=== PATIENT | female | born 1995 | race Caucasian/White ===

== ENCOUNTER → 2017-02-03 | Outpatient (CLI) | payer OTHER ==
[~2017-02-03] MED LIST: ACET50TA GT; DOCU10CA PO; IBUP1TAB7 PO; LABE300T PO; PERC5TAB12 PO; PERCOCET PO; PRENTAB74 PO; PROC30TA PO; [UNRECOGNIZED DRUG - CODE] PO
== END ==
LOC: M ADAMS 09:23
PROVIDERS: ATTEND Physician Assistant Medical
DX: J02.9 Acute pharyngitis, unspecified (principal)

== ENCOUNTER → 2017-11-08 | Outpatient (CLI) | payer OTHER ==
[2017-11-08 17:36] LABS: BASO % 0.1 % (0.0-1.0); EOS # 0.1 10^3/uL (0.0-0.50); EOS % 0.5 % (0.0-3.0); HEMATOCRIT 40.1 % (36.0-47.0); HEMOGLOBIN 13.8 g/dl (12.0-15.5); IMMATURE GRANULOCYTE % 0.3 % (0-3.0); LYMPH # 2.1 10^3/uL (1.5-6.5); LYMPH % 18.2 % (24.0-44.0); MEAN CORPUSCULAR HEMOGLOBIN 28.5 pg (27.0-33.0); MEAN CORPUSCULAR HGB CONC 34.4 g/dl (32.0-36.5); MEAN CORPUSCULAR VOLUME 82.7 fl (80.0-96.0); MONO # 0.8 10^3/uL (0.0-0.8); MONO % 6.6 % (0.0-5.0); NEUTROPHILS # 8.6 10^3/uL (1.8-7.7); NEUTROPHILS % 74.3 % (36.0-66.0); PLATELET COUNT, AUTOMATED 263 10^3/uL (150-450); RED BLOOD COUNT 4.85 10^6/uL (4.00-5.40); RED CELL DISTRIBUTION WIDTH 12.9 % (11.5-14.5); WHITE BLOOD COUNT 11.6 10^3/uL (4.0-10.0)
[2017-11-08 20:44] LABS: CHLAMYDIA DNA AMPLIFICATION NEGATIVE (NEGATIVE); GC DNA AMPLIFICATION NEGATIVE (NEGATIVE)
[2017-11-11 11:28] LABS: RUBELLA IgG QUALITATIVE IMMUNE (IMMUNE)
[2017-11-11 11:31] LABS: HBsAg Prenatal NEGATIVE (NEGATIVE)
[2017-11-11 11:57] LABS: HEPATITIS C VIRUS ABY INDEX 0.1 INDEX (<0.8)
[2017-11-13 18:33] LABS: HIV 1&2 SCREEN CENTAUR NEGATIVE (NEGATIVE)
== END ==
LOC: M LAB 15:27
DX: Z34.81 Encounter for supervision of other normal pregnancy, first trimester (principal); Z3A.08 8 weeks gestation of pregnancy
CPT/HCPCS: 86762

== ENCOUNTER → 2017-12-16 | Outpatient (CLI) | payer OTHER | LOC: M LAB 15:15 | DX: Z34.81 Encounter for supervision of other normal pregnancy, first trimester (principal); Z3A.00 Weeks of gestation of pregnancy not specified | CPT/HCPCS: 36415 ==

== ENCOUNTER 2018-01-13 09:41 | Emergency (ER) | payer OTHER ==
[2018-01-13 10:33] LABS: BASO % 0.2 % (0.0-1.0); EOS # 0.1 10^3/uL (0.0-0.50); EOS % 1.2 % (0.0-3.0); HEMATOCRIT 41.1 % (36.0-47.0); IMMATURE GRANULOCYTE % 0.5 % (0-3.0); LYMPH # 1.8 10^3/uL (1.5-6.5); LYMPH % 18.3 % (24.0-44.0); MEAN CORPUSCULAR HGB CONC 34.1 g/dl (32.0-36.5); MEAN CORPUSCULAR VOLUME 85.3 fl (80.0-96.0); MONO # 0.6 10^3/uL (0.0-0.8); MONO % 5.8 % (0.0-5.0); NEUTROPHILS # 7.4 10^3/uL (1.8-7.7); PLATELET COUNT, AUTOMATED 234 10^3/uL (150-450); RED BLOOD COUNT 4.82 10^6/uL (4.00-5.40); RED CELL DISTRIBUTION WIDTH 12.7 % (11.5-14.5); WHITE BLOOD COUNT 9.9 10^3/uL (4.0-10.0)
[2018-01-13 10:39] LABS: AMORPHOUS SEDIMENT SMALL (NEGATIVE); APPEARANCE, URINE CLOUDY (CLEAR); BACTERIA, URINE AUTO 1+ (NEGATIVE); BILIRUBIN, URINE AUTO NEGATIVE (NEGATIVE); BLOOD, URINE BLOOD 3+ (NEGATIVE); COLOR, URINE AMBER (YELLOW); GLUCOSE, URINE (UA) AUTO NEGATIVE (NEGATIVE); KETONE, URINE AUTO NEGATIVE (NEGATIVE); LEUKOCYTE ESTERASE, URINE AUTO 1+ (NEGATIVE); MUCUS, URINE SMALL (NEGATIVE); NITRITE, URINE AUTO NEGATIVE (NEGATIVE); PROTEIN, URINE AUTO 1+ mg/dL (NEGATIVE); RBC, URINE AUTO 32 /HPF (0-3); SPECIFIC GRAVITY URINE AUTO 1.026 (1.002-1.035); SQUAMOUS EPITHELIAL CELL UR AU 25 /HPF (0-6); TRANSITIONAL EPITHELIAL AUTO 1 /HPF; UROBILINOGEN, URINE AUTO 0.2 mg/dL (0.0-2.0); WBC, URINE AUTO 22 /HPF (0-3)
[2018-01-13 11:02] LABS: ANION GAP 10 MEQ/L (8-16); BLOOD UREA NITROGEN 9 MG/DL (7-18); CALCIUM LEVEL 8.7 MG/DL (8.5-10.1); CARBON DIOXIDE LEVEL 24 MEQ/L (21-32); CHLORIDE LEVEL 104 MEQ/L (98-107); CREATININE FOR GFR 0.92 MG/DL (0.55-1.30); GLOMERULAR FILTRATION RATE > 60.0 (>60); GLUCOSE, FASTING 100 MG/DL (70-100); POTASSIUM SERUM 3.7 MEQ/L (3.5-5.1); SODIUM LEVEL 138 MEQ/L (136-145)
== END 2018-01-13 11:22 | disposition home or self-care (01) ==
LOC: M ED 09:41
DX: O23.42 Unspecified infection of urinary tract in pregnancy, second trimester (principal); Z3A.17 17 weeks gestation of pregnancy; O20.8 Other hemorrhage in early pregnancy; Z79.899 Other long term (current) drug therapy; Z88.0 Allergy status to penicillin
CPT/HCPCS: 76811

== ENCOUNTER → 2018-01-30 | Outpatient (CLI) | payer OTHER | LOC: M RAD 12:02 | DX: O32.1XX0 Maternal care for breech presentation, not applicable or unspecified (principal); Z36.89 Encounter for other specified antenatal screening; Z3A.20 20 weeks gestation of pregnancy | CPT/HCPCS: 76816 ==

== ENCOUNTER → 2018-02-13 | Outpatient (REF) | payer OTHER | LOC: M LAB REF 16:56 | DX: Z36.89 Encounter for other specified antenatal screening (principal) | CPT/HCPCS: 87086 ==

== ENCOUNTER → 2018-03-27 | Outpatient (CLI) | payer OTHER ==
[~2018-03-27] MED LIST changes: +MACR100C43 PO
[2018-03-27 17:26] LABS: HEMATOCRIT 35.1 % (36.0-47.0); HEMOGLOBIN 11.6 g/dl (12.0-15.5); MEAN CORPUSCULAR HEMOGLOBIN 28.1 pg (27.0-33.0); PLATELET COUNT, AUTOMATED 203 10^3/uL (150-450); RED BLOOD COUNT 4.13 10^6/uL (4.00-5.40); WHITE BLOOD COUNT 10.3 10^3/uL (4.0-10.0)
== END ==
LOC: M LAB 15:26
PROVIDERS: ATTEND Obstetrics & Gynecology
DX: Z34.82 Encounter for supervision of other normal pregnancy, second trimester (principal); Z3A.00 Weeks of gestation of pregnancy not specified

== ENCOUNTER 2018-04-21 18:08 | Emergency (ER) | payer OTHER ==
[~2018-04-21] VITALS: Ht 165.1 cm; Wt 100.0 kg
--- NOTE | 2018-04-21 19:37 | REPVR ---
EXAM: US Duplex Right Lower Extremity Veins, Limited EXAM DATE/TIME: 04/21/2018 6:58 PM CLINICAL HISTORY: 22 years old, female; Pain; Leg, lower; Right; Additional info: Swelling TECHNIQUE: Real-time Duplex ultrasound of the Right Lower Extremity with 2-D benz scale, color Doppler flow and spectral waveform analysis. Limited exam was focused on the right lower extremity veins. COMPARISON: No relevant prior studies available. FINDINGS: Right deep veins: Unremarkable. The common femoral, femoral, proximal profunda femoral and popliteal veins are patent without thrombus. Normal Doppler waveforms. Normal compressibility and/or augmentation response. Right superficial veins: Unremarkable. Saphenofemoral junction is patent without thrombus. Soft tissues: Unremarkable. IMPRESSION: No acute findings. No evidence of deep vein thrombosis. Electronically signed by: Gabriel Ribera On 04/21/2018 19:37:09 PM
[2018-04-21 20:35] VITALS: BP 127/79
== END 2018-04-21 20:37 | disposition home or self-care (01) ==
LOC: M ED 18:08
DX: O26.893 Other specified pregnancy related conditions, third trimester (principal); R25.2 Cramp and spasm; Z3A.37 37 weeks gestation of pregnancy; Z88.0 Allergy status to penicillin; Z88.1 Allergy status to other antibiotic agents

== ENCOUNTER 2018-05-02 15:43 | Outpatient (CLI) | payer OTHER ==
[~2018-05-02] VITALS: Ht 167.6 cm; Wt 97.1 kg
[2018-05-02 15:56] VITALS: BP 137/85
[2018-05-02 16:02] VITALS: BP 126/76
[2018-05-02 16:23] LABS: HEMATOCRIT 33.8 % (36.0-47.0); HEMOGLOBIN 11.1 g/dl (12.0-15.5); MEAN CORPUSCULAR HEMOGLOBIN 27.6 pg (27.0-33.0); MEAN CORPUSCULAR HGB CONC 32.8 g/dl (32.0-36.5); MEAN CORPUSCULAR VOLUME 84.1 fl (80.0-96.0); PLATELET COUNT, AUTOMATED 217 10^3/uL (150-450); RED BLOOD COUNT 4.02 10^6/uL (4.00-5.40); WHITE BLOOD COUNT 9.1 10^3/uL (4.0-10.0)
[2018-05-02 16:47] LABS: TOTAL PROTEIN,RANDOM URINE 12.9 MG/DL (0.0-12.0)
[2018-05-02 16:58] LABS: ALT/SGPT 16 U/L (12-78); BILIRUBIN,TOTAL 0.2 MG/DL (0.2-1.0); CREATININE FOR GFR 0.77 MG/DL (0.55-1.30); GLOMERULAR FILTRATION RATE > 60.0 (>60); LDH LACTATE DEHYDROGENASE 142 U/L (84-246); URIC ACID 4.2 MG/DL (2.6-6.0)
[2018-05-02 18:02] VITALS: BP 127/79
[2018-05-02 18:12] VITALS: BP 113/63
[2018-05-02 18:22] VITALS: BP 127/75
--- NOTE | 2018-05-02 18:33 | IPNPDOC ---
Text Note Date of Service The patient was seen on 05/02/18. NOTE Outpatient 22yo PRAKASH 06/14/18. Presents @ 33w5d with complaints of elevated blood pressures in severe range. History is significant for GHTN previous 2 pregnancies. Pt had been instructed to monitor her blood pressure periodically. NAD, no complaints Normotensive NST reactive, Cat I No UC Preeclamptic panel WNL. Urine ratio 0.09. BPP 8/8, EFW 2192gm, 37% NADIA 19.1 Discharged home. Pt instructed to rest x 10 minutes prior to checking blood pressure Warnings reviewed. Keep next appt VS,Fishbone, I+O VS, Fishbone, I+O Laboratory Tests 05/02/18 16:13 Red Blood Count 4.02, Mean Corpuscular Volume 84.1, Mean Corpuscular Hemoglobin 27.6, Mean Corpuscular Hemoglobin Concent 32.8, Red Cell Distribution Width 12.2, Aspartate Amino Transf (AST/SGOT) 12, Alanine Aminotransferase (ALT/SGPT) 16, Lactate Dehydrogenase 142, Total Bilirubin 0.2, Uric Acid 4.2 Vital Signs Date Time Temp Pulse Resp B/P (MAP) Pulse Ox O2 Delivery O2 Flow Rate FiO2 05/02/18 18:22 91 127/75 (92) 05/02/18 15:56 98.1 18 Mayra Purdy CNM May 02, 2018 18:33
--- NOTE | 2018-05-06 08:37 | REP ---
Clinical: well-being Comparison: 02/20/2018 . Findings: Examination demonstrates a single live intrauterine in breech presentation. motion is identified by technologist. Placenta is noted posterior fundal and grade grade II without evidence for placenta previa or abruption. Amniotic fluid volume is normal. Cervix measures 4.5 cm in length and appears closed. Nuchal cord cannot be excluded. Gestational age by LMP 33 weeks 6 days with PRAKASH 06/14/2018 . Gestational age by current measurements 33 weeks 6 days with PRAKASH 06/14/2018 . FHR equals 153 beats per minute. BPD 8.6 cm 34 weeks 5 days HC 30.9 cm 34 weeks 3 days AC 29.2 cm 33 weeks 1 day FL 6.4 cm 33 weeks 0 days HL 5.8 cm 33 weeks 4 days HC/AC ratio 1.06 Estimated weight 2192 grams ( 37th percentile). Biophysical profile score: 8/8 Amniotic fluid index: 19.1 cm (8.1 - 24.8) Umbilical cord SD ratio: 3.48 (2.00 - 3.00). Impression: 1. Single live intrauterine in breech presentation demonstrating appropriate interval growth. 2. Biophysical profile score and amniotic fluid volume are normal. 3. Umbilical cord SD ratio mildly elevated. 4. Nuchal cord cannot be excluded. Electronically Signed by Gerson Pisano MD 05/06/2018 08:28 A
== END 2018-05-02 18:35 | disposition home or self-care (01) ==
LOC: M LDO 15:43
PROVIDERS: ATTEND Advanced Practice Midwife
DX: O13.3 Gestational [pregnancy-induced] hypertension without significant proteinuria, third trimester (principal); O32.1XX0 Maternal care for breech presentation, not applicable or unspecified; Z3A.33 33 weeks gestation of pregnancy

== ENCOUNTER → 2018-05-13 | Outpatient (REF) | payer OTHER | LOC: M LAB REF 19:06 | PROVIDERS: ATTEND Specialist | DX: Z34.83 Encounter for supervision of other normal pregnancy, third trimester (principal); Z36.85 Encounter for antenatal screening for Streptococcus B ==

== ENCOUNTER 2018-05-27 05:24 | Inpatient (IN) | payer OTHER ==
[~2018-05-27] VITALS: Ht 162.6 cm; Wt 97.9 kg
[2018-05-27] VITALS (7 sets, daily range): BP systolic 116–148; BP diastolic 60–94
[2018-05-27] MEDS ORDERED: LR 1,000 ML IV SCH ×2 (05:39→09:31)
[2018-05-27] MEDS ORDERED: LACTATED RINGER'S 1000 ML IV STA (05:39)
[2018-05-27] MEDS ORDERED: BICITRA 30ML SOLN UDC PO ONE (06:00)
[2018-05-27] MEDS ORDERED: LR 500 ML IV ONE (06:00)
[2018-05-27] MEDS ORDERED: AZTREONAM 2 GM in D5W MINI-BAG PLUS 50 ML IV ONE (06:00)
[2018-05-27] MEDS ORDERED: CLINDAMYCIN 900 MG in APPROPRIATE DILUENT 1 EA IV ONE (06:00)
[2018-05-27 06:23] LABS: HEMATOCRIT 34.8 % (36.0-47.0); HEMOGLOBIN 11.3 g/dl (12.0-15.5); MEAN CORPUSCULAR HEMOGLOBIN 26.3 pg (27.0-33.0); MEAN CORPUSCULAR HGB CONC 32.5 g/dl (32.0-36.5); MEAN CORPUSCULAR VOLUME 80.9 fl (80.0-96.0); PLATELET COUNT, AUTOMATED 213 10^3/uL (150-450); WHITE BLOOD COUNT 8.8 10^3/uL (4.0-10.0)
[2018-05-27] MEDS ORDERED: MORPHINE PRES-FREE INJ 10 MG/10 ML VIAL (J2274) As Ordered ONE (07:20)
[2018-05-27] MEDS ORDERED: OXYTOCIN INJ 10 UNITS/ML VIAL (J2590) As Ordered ONE (07:20)
[2018-05-27] MEDS ORDERED: NALOXONE INJ 0.4 MG/1 ML VIAL (J2310) IV PRN ×2 (08:14)
[2018-05-27] MEDS ORDERED: NALBUPHINE HCL 10 MG/ML AMP (J2300) IV PRN (08:14)
[2018-05-27] MEDS ORDERED: METOCLOPRAMIDE INJ 10MG/2ML VIAL (J2765) IV PRN (08:14)
[2018-05-27] MEDS ORDERED: ONDANSETRON 4MG/2ML VIAL (J2405) IV PRN ×3 (08:14→10:15)
[2018-05-27] MEDS ORDERED: diphenhydrAMINE INJ 50MG/ML VIAL (J1200) IV PRN (08:14)
[2018-05-27] MEDS ORDERED: ePHEDrine SULFATE 25 MG/5 ML(5MG/ML) SYRINGE As Ordered ONE (08:20)
[2018-05-27] MEDS ORDERED: PHENYLephrine HCL 500 MCG/5 ML (100MCG/ML) SYRINGE (J2370) As Ordered ONE (08:21)
[2018-05-27] MEDS ORDERED: KETOROLAC 60 MG/2 ML VIAL (J1885) As Ordered ONE (08:47)
[2018-05-27] MEDS ORDERED: ONDANSETRON 4MG/2ML VIAL (J2405) As Ordered ONE (08:56)
[2018-05-27] MEDS ORDERED: OXYTOCIN DRIP 30 UNITS in APPROPRIATE DILUENT 1 EA IV SCH (09:31)
[2018-05-27] MEDS ORDERED: PERCOCET PO (09:41)
[2018-05-27] MEDS ORDERED: IBUP1TAB7 PO (09:42)
[2018-05-27] MEDS ORDERED: RHOGAM 300 MCG (1500 IU) INJ (J2790) IM SCH (09:45)
[2018-05-27] MEDS ORDERED: PERCOCET 5MG/325MG TAB PO PRN (09:45)
[2018-05-27] MEDS ORDERED: MEASLES,MUMPS,RUBELLA VACCINE INJ (MMR-II) (90707) SC SCH (09:45)
[2018-05-27] MEDS ORDERED: MOM 30ML SUSPENSION UDC PO PRN (09:45)
[2018-05-27] MEDS ORDERED: NORCO, ANEXSIA 5/325MG TABLET (HYDROcodone/ACETAMINOPHEN) PO PRN (10:15)
[2018-05-27] MEDS ORDERED: fentaNYL 100 MCG/2 ML INJECTION (J3010) IV PRN (10:15)
[2018-05-27] MEDS ORDERED: ACETAMINOPHEN TAB 650MG DOSE (2X325MG) PO PRN (10:15)
[2018-05-27] MEDS ORDERED: OXYTOCIN 30 UNITS IN 0.9% NaCl 500ML IV BAG (J2590) As Ordered ONE (10:36)
[2018-05-27] MEDS: KETOROLAC 30 MG/ML VIAL (J1885) IV SCH ×2 (16:00→21:36)
[2018-05-28 02:15] VITALS: BP 114/61
[2018-05-28] MEDS: KETOROLAC 30 MG/ML VIAL (J1885) IV SCH (03:19)
[2018-05-28 06:45] VITALS: BP 139/63
[2018-05-28 07:30] LABS: HEMATOCRIT 31.7 % (36.0-47.0); HEMOGLOBIN 10.2 g/dl (12.0-15.5); MEAN CORPUSCULAR HGB CONC 32.2 g/dl (32.0-36.5); MEAN CORPUSCULAR VOLUME 83.9 fl (80.0-96.0); PLATELET COUNT, AUTOMATED 186 10^3/uL (150-450); RED BLOOD COUNT 3.78 10^6/uL (4.00-5.40); WHITE BLOOD COUNT 10.4 10^3/uL (4.0-10.0)
[2018-05-28 08:00] VITALS: BP 149/81
--- NOTE | 2018-05-28 08:06 | RO ---
DATE OF PROCEDURE: 05/27/2018 PREOPERATIVE DIAGNOSES: 1. Gestational hypertension. 2. Intrauterine at 37 weeks and 1 day. 3. History of two prior sections. POSTOPERATIVE DIAGNOSES: 1. Gestational hypertension. 2. Intrauterine at 37 weeks and 1 day. 3. History of two prior sections. SURGERY PERFORMED: Repeat section. SURGEON: Svetlana Emmanuel MD FRUIT PACKER: Vanna Hamm CNM ANESTHESIA: Spinal. ESTIMATED BLOOD LOSS: 500 mL. INTRAVENOUS FLUIDS: 1500 mL lactated Ringer's solution. URINE OUTPUT: 125 mL. PREOPERATIVE ANTIBIOTICS: 2 grams of Azactam and 900 mg of clindamycin. SPECIMENS: Cord blood. OPERATIVE FINDINGS: Female in the breech presentation. Apgars 9 and 9. Weight 6 pounds 2 ounces or 2780 grams DESCRIPTION OF OPERATION: After informed consent was obtained and written consent was reviewed, the patient was brought to the operating room where spinal anesthesia was placed. She was then placed in the supine position with a left lateral tilt. A Clancy catheter was placed and set to gravity. She was then prepped and draped in a normal sterile fashion. A time out in the operating room was then performed identifying the patient, the procedure to be performed as well as drug allergies. Anesthesia was tested and deemed to be adequate. A Pfannenstiel skin incision was then made along the previous skin incision and this was carried down to the underlying rectus fascia. The fascia was scored and this incision was extended bilaterally. The fascia was then dissected off the underlying rectus muscles both superiorly and inferiorly. The rectus muscles were then in the midline. The peritoneum was then entered sharply. The vesicouterine peritoneum was identified was identified, was tented and excised to create a bladder flap. The bladder blade was then placed to retract back the bladder. A curvilinear incision was then made in the lower uterine segment. Amniotomy was then performed productive clear fluid. The breech was brought to the level of the incision. The lower extremities were then delivered. The infant was then delivered down to the level of the scapula. The upper extremities were delivered followed by delivery of the head. The cord was clamped times two. The infant was taken over to the warmer with a good cry. Cord blood was then obtained. Placenta was drained and delivered grossly intact. The uterus was then exteriorized and cleared of all clots and debris. The uterine incision was then closed in two layers using #0 Vicryl, first in a running locking fashion, followed by a second layer for imbrication in a running nonlocking fashion. A [id number] stitch was placed along the uterine incision for hemostasis. The abdomen was then suctioned. The uterine incision was reinspected and noted to be hemostatic. The uterus was returned to the patient's abdomen, once again reinspected and noted to be hemostatic. The anterior peritoneum was then reapproximated with #3-0 Vicryl. The fascia was then closed using #0 Vicryl in a running nonlocking fashion. The subcutaneous tissue was then irrigated and suctioned. The subcutaneous tissue was then reapproximated with #3-0 Vicryl. Several subdermal stitches were placed with #3-0 Vicryl and skin was closed with #4-0 Monocryl in a subcuticular fashion. The incision was then cleaned, dried and was dressed. The patient was taken to recovery in stable condition. Counts were correct. Vanna Hamm, my medical library assistant, played an essential role during surgery. She assisted with tissue identification, retraction, delivery of the , as well as wound closure. ANNIA
[2018-05-28] MEDS: PRENATAL VITAMINS CHEWABLE TABLET PO SCH (08:14)
--- NOTE | 2018-05-28 08:41 | NUR ---
POD#1 Pain well controlled, voiding spontaneously, tolerating PO, ambulating without difficulty, lochia decreasing/minimal. VSS, normotensive, afebrile H: RRR L: CTA b/l Abd: soft,nt,nd, fundus firm Ext: no c/c/e Incision dry with bandage; no surrounding erythema or induration. preop h/h: 11.3/34.8 Postop h/h: 10.2/31.7 A/P: POD#1. Recovering well. Hemodynamically stable, afebrile, with good pain control. -Routine care -D/c home tomorrow -Routine fever/infectious, pain, bleeding precautions reviewed -F/u in 1-2 weeks and 6-8 weeks or sooner PRN. Yann Marin DO
[2018-05-28] MEDS: IBUPROFEN 800 MG TAB PO SCH ×2 (11:22→18:10)
[2018-05-28] MEDS: PERCOCET 5MG/325MG TAB PO PRN ×2 (13:16→20:36)
[2018-05-28 14:00] VITALS: BP 138/71
[2018-05-28 18:00] VITALS: BP 136/74
[2018-05-28 22:00] VITALS: BP 128/78
[2018-05-29 02:00] VITALS: BP 132/78
[2018-05-29] MEDS: IBUPROFEN 800 MG TAB PO SCH (02:59)
[2018-05-29 06:00] VITALS: BP 128/71
--- NOTE | 2018-05-29 07:42 | DSES ---
DATE OF ADMISSION: 05/27/2018 DATE OF DISCHARGE: 05/29/2018 Barby is a 22-year-old admitted for repeat section on 05/27/2018. DISCHARGE DIAGNOSIS: 1. Repeat section at term. 2. Gestational hypertension, stable. SURGEON: Dr. Svetlana Emmanuel METALIZER: Vanna Hamm, certified nurse musician instrumental. HISTORY: Barby is a 22-year-old 3, para 2-1-0-3 now, who underwent repeat section due to gestational hypertension during her . Her surgery was uncomplicated. She delivered a live female , 2780 grams, 6 pounds 2 ounces, 9 and 9. Her estimated blood loss for surgery was 500 mL. She has been out of bed for self care, rosendo care and infant care. She is voiding without difficulty and passing flatus. Her pain has been well controlled with by mouth pain medication. She is tolerating a regular diet and by mouth fluids. She has no complaints today. Preoperative CBC with hemoglobin of 11.3, hematocrit 34.8 and platelets 213. Postoperative CBC on 05/28/2018 with hemoglobin 10.2, hematocrit 31.7 and platelets 186. OBJECTIVE: Vital signs are stable today. Her temperature is 98.5, pulse 97, respirations 18, BP 128/71. She is alert and oriented times three. Her breasts are soft, nontender. Nipples are intact. Her abdomen with fundus firm at umbilicus. Dressing is intact and dry. There is no drainage noted around the dressing. She is to remove the dressing on postoperative day #5. Perineum is intact. Lochia rubra scant. PLAN: Discharge the patient home today. She is to follow up at [facility] in 1 week for a blood pressure check, 2 weeks for incision check and 8 weeks for visit. Pain meds have been E-prescribed by Dr. Svetlana Emmanuel to her pharmacy for Percocet 5/325 1-2 tablets by mouth every 4 hours as needed pain, ibuprofen 800 mg as needed for pain every 8 hours. I did review discharge instructions that include breast care, incision care, rosendo care, pelvic rest, activity and lifting restrictions, other danger signs, as well as access to care. edited: 05/30/2018 0717 tkf ANNIA
[2018-05-29] MEDS ORDERED: PRENTAB9 PO (08:00)
[2018-05-29] MEDS ORDERED: IBUP-1114 PO (08:00)
[2018-05-29] MEDS: PRENATAL VITAMINS CHEWABLE TABLET PO SCH (08:26)
== END 2018-05-29 10:20 | disposition home or self-care (01) | DRG 540 ==
LOC: M LDI 05:24 → M OBS 11:11
PROVIDERS: ADMIT Obstetrics & Gynecology; ATTEND Obstetrics & Gynecology
PROC: 10D00Z1 Extraction of Products of Conception, Low, Open Approach (ICD-10-PCS; principal; 2018-05-27 07:30)
DX: O34.211 Maternal care for low transverse scar from previous cesarean delivery (principal); O13.3 Gestational [pregnancy-induced] hypertension without significant proteinuria, third trimester; Z3A.37 37 weeks gestation of pregnancy; O32.1XX0 Maternal care for breech presentation, not applicable or unspecified; Z37.0 Single live birth

== ENCOUNTER → 2019-03-09 | Outpatient (CLI) | payer OTHER ==
[~2019-03-09] MED LIST changes: -ACET50TA GT; +IBUP-1114 PO; +MAPA500T17 GT; +OXYC1TAB23 PO; +PRENTAB9 PO
[2019-03-09 16:57] LABS: BASO % 0.2 % (0.0-1.0); EOS # 0.2 10^3/uL (0.0-0.5); EOS % 2.1 % (0.0-3.0); HEMATOCRIT 37.5 % (36.0-47.0); HEMOGLOBIN 11.9 g/dl (12.0-15.5); LYMPH # 1.9 10^3/uL (1.5-5.0); LYMPH % 21.9 % (24.0-44.0); MEAN CORPUSCULAR HEMOGLOBIN 26.3 pg (27.0-33.0); MEAN CORPUSCULAR HGB CONC 31.7 g/dl (32.0-36.5); MEAN CORPUSCULAR VOLUME 82.8 fl (80.0-96.0); MONO # 0.7 10^3/uL (0.0-0.8); MONO % 7.6 % (0.0-5.0); NEUTROPHILS % 68.1 % (36.0-66.0); PLATELET COUNT, AUTOMATED 196 10^3/uL (150-450); RED BLOOD COUNT 4.53 10^6/uL (4.00-5.40); WHITE BLOOD COUNT 8.9 10^3/uL (4.0-10.0)
[2019-03-09 18:38] LABS: CHLAMYDIA DNA AMPLIFICATION NEGATIVE (NEGATIVE); GC DNA AMPLIFICATION NEGATIVE (NEGATIVE)
[2019-03-10 08:13] LABS: RUBELLA IgG QUALITATIVE IMMUNE (IMMUNE)
[2019-03-11 13:17] LABS: HEPATITIS B SURFACE ANTIGEN NEGATIVE (NEGATIVE); HEPATITIS C VIRUS ABY INDEX < 0.0 INDEX (<0.8); HIV 1&2 SCREEN CENTAUR NEGATIVE (NEGATIVE)
== END ==
LOC: M LAB 15:35
PROVIDERS: ATTEND Specialist
DX: Z34.92 Encounter for supervision of normal pregnancy, unspecified, second trimester (principal); Z36.89 Encounter for other specified antenatal screening

== ENCOUNTER → 2019-03-19 | Outpatient (CLI) | payer OTHER | LOC: M LAB 14:30 | PROVIDERS: ATTEND Specialist | DX: Z34.82 Encounter for supervision of other normal pregnancy, second trimester (principal); Z36.89 Encounter for other specified antenatal screening ==

== ENCOUNTER → 2019-03-20 | Outpatient (CLI) | payer OTHER ==
--- NOTE | 2019-03-21 11:57 | REP ---
Obstetric sonography: History: Supervision of for anatomy. Findings: Scanning through the gravid uterus demonstrates a viable single intrauterine gestation in a variable lie. motion is observed and heart rate is recorded at 152 beats per minute. A posterior placenta is seen grade 1 without evidence of previa. Amniotic fluid is subjectively normal. Closed cervical length is 4.6 cm. No abnormality is observed. lungs, four-chamber heart and outflow tract views are less than optimally visualized due to position. The following additional anatomic structures are identified and felt to be unremarkable: cranium, choroid plexus, cavum, cerebellum and posterior fossa, face and profile, diaphragm, left-sided stomach, abdominal wall cord insertion, three-vessel umbilical cord, kidneys and bladder, spine, upper and lower extremities. Biometry chart: BPD 3.9 cm = 17 weeks 5 days Head circumference 14.6 cm = 17 weeks 5 days Abdominal circumference 12.7 cm = 18 weeks 2 days Femur length 2.6 cm = 18 weeks 0 days Humeral length 2.7 cm = 18 weeks 3 days HC/AC ratio normal 1.15. Cephalic index normal 0.73. Estimated weight 222 grams, 0 pounds 7 ounces, 53rd percentile for 17 weeks 6 days. Impression: Viable single intrauterine gestation at the 18 weeks 0 days by today's composite sonographic criteria. Expected gestational age estimate based on today's sonography August 21, 2019. heart, outflow tracts, and lungs are less than optimally visualized today due to position. Electronically Signed by Toby Rodriguez MD 03/21/2019 12:35 P
== END ==
LOC: M RAD 14:32
PROVIDERS: ATTEND Specialist
DX: Z34.92 Encounter for supervision of normal pregnancy, unspecified, second trimester (principal); Z36.89 Encounter for other specified antenatal screening; Z3A.18 18 weeks gestation of pregnancy

== ENCOUNTER → 2019-04-16 | Outpatient (CLI) | payer OTHER ==
[2019-04-16 16:30] LABS: TOTAL PROTEIN,RANDOM URINE 12.2 MG/DL (0.0-12.0)
[2019-04-16 16:31] LABS: ALT/SGPT 13 U/L (12-78); BILIRUBIN,TOTAL 0.3 MG/DL (0.2-1.0); CREATININE FOR GFR 0.74 MG/DL (0.55-1.30); GLOMERULAR FILTRATION RATE > 60.0 (>60); LDH LACTATE DEHYDROGENASE 147 U/L (84-246); URIC ACID 4.1 MG/DL (2.6-6.0)
== END ==
LOC: M LAB 15:00
PROVIDERS: ATTEND Advanced Practice Midwife
DX: O99.212 Obesity complicating pregnancy, second trimester (principal); E66.9 Obesity, unspecified; Z3A.00 Weeks of gestation of pregnancy not specified

== ENCOUNTER → 2019-04-29 | Outpatient (CLI) | payer OTHER ==
--- NOTE | 2019-04-29 18:24 | REP ---
OB ULTRASOUND: Real-time sonographic evaluation of the gravid uterus performed. There is a single living intrauterine gestation. The estimated gestational age is 23 weeks 5 days, EDC 08/21/2019. Today's measurements indicate appropriate growth. BPD 56 mm = 23 weeks 1 days, 35th percentile HC 203 mm = 22 weeks 3 days, 12th percentile AC 176 mm = 22 weeks 4 days, 25th percentile FL 42 mm = 23 weeks 5 days, 50th percentile HC/AC ratio 1.15, within normal range. Estimated weight 553 grams, 24th percentile. Cervix is closed and measures 3.8 cm in length. heart rate 147 beats per minute. SEEN/GROSSLY UNREMARKABLE Lateral ventricles yes Posterior fossa yes Upper lip yes Four-chamber heart Echogenic focus left ventricle likely related to chordae tendinea LVOT yes RVOT yes Stomach yes Cord insertion yes Three vessel cord yes Kidneys yes Bladder yes Spine no position: Vertex. Placenta: Posterior and grade 1 with no previa or abruption. Amniotic fluid: Within normal limits. Electronically Signed by Isaiah Hernandez MD 04/30/2019 10:26 A
== END ==
LOC: M RAD 15:13
PROVIDERS: ATTEND Advanced Practice Midwife
DX: Z36.9 Encounter for antenatal screening, unspecified (principal); Z3A.23 23 weeks gestation of pregnancy

== ENCOUNTER → 2019-05-28 | Outpatient (CLI) | payer OTHER ==
--- NOTE | 2019-05-28 15:27 | REP ---
OBSTETRIC SONOGRAPHY: HISTORY: Supervision of . Previous . Followup anatomy. Comparison study April 29, 2019. FINDINGS: Scanning through the gravid uterus demonstrates a living single intrauterine gestation in a cephalic lie. motion is observed and heart rate is recorded at 140 beats per minute. A posterior grade 1 placenta is seen without evidence of previa or abruption. Amniotic fluid is subjectively normal. Closed cervical length is 3.6 cm. There has been appropriate interval growth. Exam quality is inhibited to some degree by advanced gestational age and position. The following anatomic structures are identified today and felt to be unremarkable: cranium, face and profile, four-chamber heart with left and right ventricular outflow tract views, left-sided stomach, abdominal wall cord insertion, three-vessel cord, kidneys and bladder, spine. An echogenic focus is again seen in the left ventricle likely chordae tendineae. Biometry chart: BPD 6.7 cm = 26 weeks 6 days Head circumference 25.3 cm = 27 weeks 3 days Abdominal circumference 21.9 cm = 26 weeks 3 days Femur length 5.1 cm = 27 weeks 1 day Humeral length 4.7 cm = 27 weeks 4 days HC/AC ratio normal 1.15. Cephalic index normal 0.72. Estimated weight 984 grams, 2 pounds 2 ounces, 17th percentile for 27 weeks 6 days. IMPRESSION: Viable single intrauterine gestation at the 26 weeks 5 days by today's composite sonographic criteria. Expected gestational age estimate based on prior sonography is 27 weeks 5 days. PRAKASH by prior sonography August 22, 2019.
== END ==
LOC: M WHC 13:03
PROVIDERS: ATTEND Advanced Practice Midwife
DX: O34.211 Maternal care for low transverse scar from previous cesarean delivery (principal); Z3A.26 26 weeks gestation of pregnancy

== ENCOUNTER → 2019-06-04 | Outpatient (CLI) | payer OTHER | LOC: M LABSMTC 11:30 | PROVIDERS: ATTEND Family Medicine | DX: Z11.59 Encounter for screening for other viral diseases (principal); Z20.828 Contact with and (suspected) exposure to other viral communicable diseases ==

== ENCOUNTER → 2019-06-10 | Outpatient (REF) | payer OTHER ==
[2019-06-10 18:30] LABS: HEMATOCRIT 35.5 % (36.0-47.0); HEMOGLOBIN 11.1 g/dl (12.0-15.5); MEAN CORPUSCULAR HEMOGLOBIN 25.8 pg (27.0-33.0); MEAN CORPUSCULAR HGB CONC 31.3 g/dl (32.0-36.5); MEAN CORPUSCULAR VOLUME 82.6 fl (80.0-96.0); PLATELET COUNT, AUTOMATED 261 10^3/uL (150-450); WHITE BLOOD COUNT 11.3 10^3/uL (4.0-10.0)
[2019-06-10 18:48] LABS: ALT/SGPT 14 U/L (12-78); BILIRUBIN,TOTAL 0.2 MG/DL (0.2-1.0); CREATININE FOR GFR 0.88 MG/DL (0.55-1.30); GLOMERULAR FILTRATION RATE > 60.0 (>60); LDH LACTATE DEHYDROGENASE 149 U/L (84-246); URIC ACID 5.2 MG/DL (2.6-6.0)
[2019-06-10 18:58] LABS: TOTAL PROTEIN,RANDOM URINE 17.2 MG/DL (0.0-12.0)
== END ==
LOC: M PLALAB 15:38
PROVIDERS: ATTEND Advanced Practice Midwife
DX: O13.3 Gestational [pregnancy-induced] hypertension without significant proteinuria, third trimester (principal); Z3A.00 Weeks of gestation of pregnancy not specified

== ENCOUNTER → 2019-06-15 | Outpatient (REF) | payer OTHER ==
[2019-06-15 13:42] LABS: HEMATOCRIT 36.1 % (36.0-47.0); HEMOGLOBIN 11.5 g/dl (12.0-15.5); MEAN CORPUSCULAR HEMOGLOBIN 26.1 pg (27.0-33.0); MEAN CORPUSCULAR HGB CONC 31.9 g/dl (32.0-36.5); PLATELET COUNT, AUTOMATED 223 10^3/uL (150-450); WHITE BLOOD COUNT 9.5 10^3/uL (4.0-10.0)
== END ==
LOC: M PLALAB 09:50
PROVIDERS: ATTEND Advanced Practice Midwife
DX: O34.211 Maternal care for low transverse scar from previous cesarean delivery (principal); Z3A.00 Weeks of gestation of pregnancy not specified

== ENCOUNTER → 2019-06-30 | Outpatient (CLI) | payer OTHER ==
--- NOTE | 2019-06-30 18:11 | REP ---
Clinical: Anatomical evaluation. Comparison: 05/28/2019 . Findings: Examination demonstrates a single live intrauterine in breech presentation. motion is identified by technologist. Placenta is noted posterior and grade air I without evidence for placenta previa or abruption. Amniotic fluid volume is normal. Cervix measures 3.4 cm in length and appears closed. No evidence for nuchal cord. Gestational age by LMP 32 weeks 4 days with PRAKASH 08/21/2019 . Gestational age by current measurements 31 weeks 4 days with PRAKASH 08/28/2019 . FHR equals 155 beats per minute. Estimated weight 1736 grams ( 21st percentile). NADIA: 19.4 cm Anatomical assessment demonstrates normal structures including cranium, diaphragm, stomach, cord insertion/three-vessel cord, kidneys/bladder. Impression: Single live intrauterine in breech presentation demonstrating appropriate interval growth. No gross abnormalities are identified.
== END ==
LOC: M WHC 10:58
PROVIDERS: ATTEND Advanced Practice Midwife
DX: O34.211 Maternal care for low transverse scar from previous cesarean delivery (principal); Z36.2 Encounter for other antenatal screening follow-up; O32.1XX0 Maternal care for breech presentation, not applicable or unspecified; Z3A.32 32 weeks gestation of pregnancy

== ENCOUNTER → 2019-07-20 | Outpatient (CLI) | payer OTHER ==
[~2019-07-20] MED LIST changes: +ECOT81TA5 PO; +PREN29TA4 PO
--- NOTE | 2019-07-21 02:31 | REP ---
Clinical: Growth evaluation. Comparison: 06/30/2019 . Findings: Examination demonstrates a single live intrauterine in breech presentation. motion is identified by technologist. Placenta is noted posterior fundal and grade I without evidence for placenta previa or abruption. Amniotic fluid volume is normal. Cervix measures 3.4 cm in length and appears closed. No evidence for nuchal cord. Gestational age by LMP 35 weeks 3 days with PRAKASH 08/21/2019 . Gestational age by current measurements 34 weeks 6 days with PRAKASH 08/25/2019 . FHR equals 133 beats per minute. Amniotic fluid index: 22.8 cm (7.8 - 24.9) Estimated weight by current biometrical measurements 2622 grams ( 47th percentile). Impression: Single live intrauterine in breech presentation demonstrating appropriate interval growth.
== END ==
LOC: M WHC 10:10
PROVIDERS: ATTEND Advanced Practice Midwife
DX: O13.3 Gestational [pregnancy-induced] hypertension without significant proteinuria, third trimester (principal); Z3A.34 34 weeks gestation of pregnancy

== ENCOUNTER → 2019-07-23 | Outpatient (REF) | payer OTHER ==
[~2019-07-23] MED LIST changes: +DOCU100C16 PO; +IBUP80TA PO
== END ==
LOC: M SFHCWAGY 17:04
PROVIDERS: ATTEND Advanced Practice Midwife
DX: O13.3 Gestational [pregnancy-induced] hypertension without significant proteinuria, third trimester (principal)

== ENCOUNTER 2019-07-30 21:06 | Inpatient (IN) | payer OTHER ==
[2019-07-30] VITALS (11 sets, daily range): BP systolic 119–149; BP diastolic 84–98
[~2019-07-30] VITALS: Ht 165.1 cm; Wt 100.8 kg
[~2019-07-30 21:06] MED LIST changes: -DOCU100C16 PO; -IBUP80TA PO; -PREN29TA4 PO
[2019-07-30] MEDS ORDERED: PREN29TA4 PO (21:27)
[2019-07-30 22:03] LABS: HEMATOCRIT 33.2 % (36.0-47.0); HEMOGLOBIN 10.4 g/dl (12.0-15.5); MEAN CORPUSCULAR HEMOGLOBIN 24.2 pg (27.0-33.0); MEAN CORPUSCULAR HGB CONC 31.3 g/dl (32.0-36.5); MEAN CORPUSCULAR VOLUME 77.4 fl (80.0-96.0); PLATELET COUNT, AUTOMATED 222 10^3/uL (150-450); RED BLOOD COUNT 4.29 10^6/uL (4.00-5.40)
[2019-07-30 22:29] LABS: ALT/SGPT 20 U/L (12-78); BILIRUBIN,TOTAL 0.3 MG/DL (0.2-1.0); CREATININE FOR GFR 0.67 MG/DL (0.55-1.30); GLOMERULAR FILTRATION RATE > 60.0 (>60); LDH LACTATE DEHYDROGENASE 196 U/L (84-246); URIC ACID 5.1 MG/DL (2.6-6.0)
[2019-07-30 23:13] LABS: TOTAL PROTEIN,RANDOM URINE 11.4 MG/DL (0.0-12.0)
[2019-07-31] VITALS (15 sets, daily range): BP systolic 119–164; BP diastolic 75–94
[2019-07-31] MEDS ORDERED: LACTATED RINGER'S 1000 ML IV STA (05:33)
[2019-07-31] MEDS ORDERED: LR 1,000 ML IV SCH ×2 (05:33→05:45)
[2019-07-31] MEDS ORDERED: BICITRA 30ML SOLN UDC PO ONE ×2 (05:45)
[2019-07-31] MEDS ORDERED: LR 1,000 ML IV ONE (05:45)
[2019-07-31] MEDS ORDERED: CLINDAMYCIN 900 MG in IV 1 EA IV ONE ×2 (05:45)
[2019-07-31] MEDS ORDERED: AZTREONAM 2 GM in D5W MINI-BAG PLUS 50 ML IV ONE (06:00)
[2019-07-31] MEDS ORDERED: AZTREONAM 1 GM in D5W MINI-BAG PLUS 50 ML IV ONE (06:00)
[2019-07-31] MEDS ORDERED: OXYTOCIN INJ 10 UNITS/ML VIAL (J2590) As Ordered ONE ×2 (07:17→08:40)
[2019-07-31] MEDS ORDERED: MORPHINE PRES-FREE INJ 10 MG/10 ML VIAL (J2274) As Ordered ONE (08:06)
[2019-07-31] MEDS ORDERED: diphenhydrAMINE 50MG/ML VIAL (J1200) IV PRN (08:25)
[2019-07-31] MEDS ORDERED: NALOXONE INJ 0.4MG/1ML VIAL (J2310 PER 1MG) IV PRN ×2 (08:25)
[2019-07-31] MEDS ORDERED: NALBUPHINE HCL 10 MG/ML AMP (J2300) IV PRN (08:25)
[2019-07-31] MEDS ORDERED: ONDANSETRON 4MG/2ML VIAL IV PRN ×4 (08:25→12:45)
[2019-07-31] MEDS ORDERED: METOCLOPRAMIDE INJ 10MG/2ML VIAL (J2765 PER 1) IV PRN (08:25)
[2019-07-31] MEDS ORDERED: dexameTHASONE 4 MG/ML 1ML VIAL (J1100 PER 1MG) As Ordered ONE (08:40)
[2019-07-31] MEDS ORDERED: ONDANSETRON 4MG/2ML VIAL As Ordered ONE (08:40)
[2019-07-31] MEDS ORDERED: KETOROLAC 60 MG/2 ML VIAL As Ordered ONE (08:40)
[2019-07-31] MEDS ORDERED: ePHEDrine SULFATE 25 MG/5 ML(5MG/ML) SYRINGE As Ordered ONE (08:44)
[2019-07-31] MEDS: LR 1,000 ML IV SCH ×2 (09:18→14:17)
[2019-07-31] MEDS ORDERED: OXYTOCIN DRIP 30 UNITS in IV 1 EA IV SCH (09:18)
[2019-07-31] MEDS ORDERED: oxyCODONE 5MG TAB PO PRN (09:30)
[2019-07-31] MEDS ORDERED: fentaNYL 100 MCG/2 ML INJECTION (J3010) IV PRN (09:30)
[2019-07-31] MEDS ORDERED: RHOGAM 300 MCG (1500 IU) INJ (J2790) IM SCH (09:30)
[2019-07-31] MEDS ORDERED: MEASLES,MUMPS,RUBELLA VACCINE INJ (MMR-II) (90707) SC SCH (09:30)
[2019-07-31] MEDS ORDERED: OXYTOCIN 30 UNITS IN 0.9% NaCl 500ML IV BAG (J2590) As Ordered ONE (10:01)
[2019-07-31] MEDS ORDERED: fentaNYL 100 MCG/2 ML INJECTION (J3010) As Ordered ONE (10:07)
[2019-07-31] MEDS ORDERED: HYDROMORPHONE HCL 0.5 MG/ 0.5 ML SYRINGE (J1170 PER 1) As Ordered ONE (10:11)
[2019-07-31] MEDS: HYDROMORPHONE HCL 0.5 MG/ 0.5 ML SYRINGE (J1170 PER 1) IV PRN ×2 (10:16→10:36)
[2019-07-31] MEDS: PERCOCET 5MG/325MG TAB PO PRN (12:10)
[2019-07-31] MEDS: KETOROLAC 30 MG/ML 1ML VIAL IV SCH ×2 (19:33→20:04)
[2019-07-31] MEDS: DOCUSATE SODIUM 100 MG CAP PO PRN (20:04)
[2019-08-01] MEDS: PERCOCET 5MG/325MG TAB PO PRN ×3 (01:10→14:37)
[2019-08-01 01:55] VITALS: BP 125/82
[2019-08-01] MEDS: KETOROLAC 30 MG/ML 1ML VIAL IV SCH (03:55)
[2019-08-01 06:06] VITALS: BP 128/73
--- NOTE | 2019-08-01 06:42 | IPNPDOC ---
Text Note Date of Service The patient was seen on 08/01/19. NOTE PO #1 Feels well. Adequate pain management. Clancy just removed this am, due to void. Passing flatus VSS, afebrile, normotensive Breasts soft Fundus firm NT Dressing dry, intact, scant old drainage Lochia rubra light without odor PO #1 Routine care and precautions. Consider discharge in am VS,Fishbone, I+O VS, Fishbone, I+O Vital Signs Date Time Temp Pulse Resp B/P (MAP) Pulse Ox O2 Delivery O2 Flow Rate FiO2 08/01/19 06:06 98.2 84 16 128/73 (91) 99 07/31/19 18:00 Room Air I&O- Last 24 Hours up to 6 AM 08/01/19 06:00 Intake Total 1900 ml Output Total 2525 ml Balance -625 ml Mayra Purdy CNM August 01, 2019 06:42
[2019-08-01 07:37] LABS: HEMATOCRIT 29.1 % (36.0-47.0); HEMOGLOBIN 9.2 g/dl (12.0-15.5); MEAN CORPUSCULAR HEMOGLOBIN 24.9 pg (27.0-33.0); MEAN CORPUSCULAR HGB CONC 31.6 g/dl (32.0-36.5); MEAN CORPUSCULAR VOLUME 78.6 fl (80.0-96.0); PLATELET COUNT, AUTOMATED 186 10^3/uL (150-450); WHITE BLOOD COUNT 9.9 10^3/uL (4.0-10.0)
[2019-08-01] MEDS: PRENATAL VITAMINS CHEWABLE TABLET PO SCH (08:29)
[2019-08-01 09:54] VITALS: BP 130/85
[2019-08-01] MEDS: IBUPROFEN 800 MG TAB PO SCH ×2 (11:10→19:50)
--- NOTE | 2019-08-01 12:48 | HPE ---
DATE OF ADMISSION: 07/31/2019 A 24-year-old G4, P2-1-0-3 female at 37-0/7 weeks gestation by 16-week ultrasound, estimated date of confinement (EDC) of 08/21/2019, presents to the hospital after recording a blood pressure at home of 159/113. This was similar on repeat. She had been lying down resting, when she felt flushed and decided to check a blood pressure. Denies headaches or blurred vision. COURSE: The patient initiated at 20 weeks gestation. Blood pressure her first visit was 126/78. She started to develop elevated blood pressures at 29 weeks and was started on labetalol. She stopped the labetalol at 33 weeks. She has a history of gestational hypertension and pre-eclampsia with each of her pregnancies. OBSTETRICAL HISTORY: 1. September 2012, section for a 6-pound 1-ounce female infant at 36 weeks gestation. complicated by gestational hypertension and pre-eclampsia. 2. February 2014, [id number] repeat section, 6-pound 2-ounce female . was complicated by gestational hypertension and pre-eclampsia. 3. May 2018, a 37-week section, 6-pound 2-ounce female . was complicated by gestational hypertension and pre-eclampsia. MEDICAL HISTORY: 1. Obesity. 2. Sleep apnea. 3. Asthma. SURGICAL HISTORY: 1. section times three. 2. Tonsillectomy. ALLERGIES: CEFTIN, which caused a rash. SOCIAL HISTORY: Patient lives in [place]. She is . She denies cigarettes, alcohol, or drug use. FAMILY HISTORY: Noncontributory. PHYSICAL EXAMINATION: Blood pressure 142/98, pulse 84, afebrile. She is in no apparent distress. Head and neck exam normal. Lungs clear. Heart regular rate and rhythm. Abdomen nontender, gravid. heart tones category 1. Contractions rare. Extremities nontender. Trace edema. LABORATORY DATA: Pre-eclampsia profile within normal limits. Urine P-C ratio 0.14. ASSESSMENT: A 24-year-old G4, P2-1-0-3 female at 37-0/7 weeks gestation was admitted with a diagnosis of pre-eclampsia. Patient has a history of three prior sections. PLAN: Patient was admitted on 07/31/2019. Plan repeat section. Patient declines tubal sterilization at this time.
[2019-08-01 14:20] VITALS: BP 122/75
[2019-08-01 18:10] VITALS: BP 134/81
[2019-08-01] MEDS: DOCUSATE SODIUM 100 MG CAP PO PRN (19:50)
[2019-08-02 00:10] VITALS: BP 119/71
[2019-08-02] MEDS: PERCOCET 5MG/325MG TAB PO PRN ×2 (00:41→08:08)
[2019-08-02] MEDS: IBUPROFEN 800 MG TAB PO SCH ×2 (03:24→11:46)
[2019-08-02 06:00] VITALS: BP 132/87
[2019-08-02] MEDS: PRENATAL VITAMINS CHEWABLE TABLET PO SCH (08:08)
[2019-08-02] MEDS ORDERED: PERCOCET PO (10:06)
[2019-08-02] MEDS ORDERED: IBUP80TA PO (10:06)
[2019-08-02] MEDS ORDERED: DOCU100C16 PO (10:06)
--- NOTE | 2019-08-07 08:32 | RO ---
DATE OF PROCEDURE: 07/31/2019 PREPROCEDURE DIAGNOSIS: 37 and 0/7 weeks gestation, preeclampsia, prior section times three. POSTPROCEDURE DIAGNOSIS: 37 and 0/7 weeks gestation, preeclampsia, prior section times three. PROCEDURE: Repeat low transverse section. SURGEON: Ben Leach MD MED SPECIALIST: Bandar Marin DO ANESTHESIA: Spinal. ESTIMATED BLOOD LOSS: 600 mL. URINE OUTPUT: 50 mL. IV FLUID: 1300 mL lactated Ringers (LR). FINDINGS: 2880 gram, 6 pound and 6 ounce, female infant, Apgars 8 and 9, vertex position. Moderate adhesions of the uterus to the anterior abdominal wall, otherwise normal fallopian tubes and ovaries. DESCRIPTION OF PROCEDURE: The patient was taken to the operating room where spinal anesthesia was induced. She was prepped and draped in sterile fashion in the supine position. A Clancy catheter was placed. A Pfannenstiel skin incision was made with the scalpel and carried through to the fascia. The fascia was nicked and extended. The fascia was dissected off the rectus muscles. The peritoneal cavity was entered. Adhesions to the uterus and the anterior abdominal wall were taken down sharply. A Mobius retractor was placed. A curvilinear incision was made in the lower uterine segment until bulging membranes were noted. This was extended manually. Membranes were ruptured with clear fluid. The was delivered from the vertex position without difficulty. The cord was doubly clamped and cut. The was handed off to the awaiting nurses. The placenta was expressed. The uterus was cleared of clots and debris. The uterine incision was closed with #0 Vicryl in a running locked fashion. A second imbricating layer of #0 Vicryl was placed. The Mobius retractor was removed. The peritoneum was closed with #2-0 Vicryl in a running fashion. The fascia was closed with #0 Vicryl. The deep layer was irrigated and the skin was closed with #4-0 Monocryl subcuticular sutures. Sponge, instrument and needle counts were correct. Bandar Marin DO, assisted throughout the procedure from beginning to end. He helped create each layer of the incision. He helped deliver the fetus and close. He was indispensable to the successful performance of the procedure.
== END 2019-08-02 13:35 | disposition home or self-care (01) | DRG 540 ==
LOC: M LDO 21:06 → M LDI 23:50 → M OBS 07-31 11:10
PROVIDERS: ADMIT Specialist; ATTEND Specialist
PROC: 10D00Z1 Extraction of Products of Conception, Low, Open Approach (ICD-10-PCS; principal; 2019-07-31 07:30)
DX: O14.94 Unspecified pre-eclampsia, complicating childbirth (principal); Z37.0 Single live birth; O34.211 Maternal care for low transverse scar from previous cesarean delivery; Z3A.37 37 weeks gestation of pregnancy

== ENCOUNTER → 2019-08-18 | Outpatient (REF) | payer OTHER ==
[~2019-08-18] MED LIST changes: +DOCU100C16 PO; +IBUP80TA PO; +PREN29TA4 PO
== END ==
LOC: M SFHCWAGY 11:41
PROVIDERS: ATTEND Obstetrics & Gynecology
DX: O86.01 Infection of obstetric surgical wound, superficial incisional site (principal)

== ENCOUNTER → 2020-02-03 | Outpatient (REF) | payer OTHER ==
[2020-02-03 13:44] LABS: HCG, SERUM QUALITATIVE POSITIVE (NEGATIVE)
== END ==
LOC: M PLALAB 11:22
PROVIDERS: ATTEND Advanced Practice Midwife
DX: Z32.01 Encounter for pregnancy test, result positive (principal)

== ENCOUNTER → 2020-02-04 | Outpatient (REF) | payer OTHER ==
[2020-02-04 15:10] LABS: HEMATOCRIT 40.7 % (36.0-47.0); HEMOGLOBIN 12.9 g/dl (12.0-15.5); MEAN CORPUSCULAR HEMOGLOBIN 26.1 pg (27.0-33.0); MEAN CORPUSCULAR HGB CONC 31.7 g/dl (32.0-36.5); MEAN CORPUSCULAR VOLUME 82.2 fl (80.0-96.0); PLATELET COUNT, AUTOMATED 196 10^3/uL (150-450); RED BLOOD COUNT 4.95 10^6/uL (4.00-5.40); WHITE BLOOD COUNT 8.1 10^3/uL (4.0-10.0)
[2020-02-04 17:35] LABS: HIV 1&2 SCREEN CENTAUR NEGATIVE (NEGATIVE)
== END ==
LOC: M PLALAB 09:10
PROVIDERS: ATTEND Specialist
DX: Z34.82 Encounter for supervision of other normal pregnancy, second trimester (principal)

== ENCOUNTER → 2020-02-23 | Outpatient (CLI) | payer OTHER ==
--- NOTE | 2020-02-23 11:48 | REP ---
INDICATION: ANATOMY COMPARISON: None. TECHNIQUE: Transabdominal obstetrical ultrasound with color Doppler evaluation. FINDINGS: Examination demonstrates a single live intrauterine in variable presentation. motion is identified by technologist. Placenta is noted posterior and grade 1 without evidence for placenta previa or abruption. Amniotic fluid volume is normal. Cervix measures 4.5 cm in length and appears closed. Placental tip is identified 2.3 cm from the closed internal os.. Gestational age by current measurements 19 weeks 1 day with PRAKASH 07/18/2020. FHR equals 155 beats per minute. BPD: 4.3 cm 18 weeks 6 days HC: 16.3 cm 19 weeks 0 days AC: 13.2 cm 18 weeks 5 days FL: 3.1 cm 19 weeks 5 days HL: 2.9 cm 19 weeks 3 days HC/AC: 1.23 Estimated weight 279 grams (47thpercentile). Anatomical assessment demonstrates normal structures including cranium, choroid plexus, cavum, cerebellum/posterior fossa, facial features, lungs, cardiac ventricular outflow tracts, stomach, cord insertion/three-vessel cord, kidneys/bladder, spine, and extremities. Limited evaluation of the heart and diaphragm may warrant re-evaluation and follow-up. IMPRESSION: Single live intrauterine in variable presentation demonstrating appropriate estimated weight. No gross abnormalities are identified. However, limited evaluation of the heart and diaphragm may warrant re-evaluation/follow-up. <Electronically signed by Gerson Pisano > 02/23/20 [id number]
== END ==
LOC: M WHC 10:07
PROVIDERS: ATTEND Specialist
DX: Z34.82 Encounter for supervision of other normal pregnancy, second trimester (principal)

== ENCOUNTER → 2020-03-16 | Outpatient (CLI) | payer OTHER | LOC: M LABSMTC 13:28 | PROVIDERS: ATTEND Family Medicine | DX: Z11.52 Encounter for screening for COVID-19 (principal) ==

== ENCOUNTER → 2020-03-28 | Outpatient (REF) | payer OTHER | LOC: M PLALAB 10:44 | PROVIDERS: ATTEND Obstetrics & Gynecology | DX: Z3A.24 24 weeks gestation of pregnancy (principal) ==

== ENCOUNTER → 2020-04-06 | Outpatient (REF) | payer OTHER ==
[2020-04-06 18:13] LABS: HEMATOCRIT 36.8 % (36.0-47.0); HEMOGLOBIN 11.2 g/dl (12.0-15.5); MEAN CORPUSCULAR HEMOGLOBIN 24.6 pg (27.0-33.0); MEAN CORPUSCULAR HGB CONC 30.4 g/dl (32.0-36.5); MEAN CORPUSCULAR VOLUME 80.9 fl (80.0-96.0); PLATELET COUNT, AUTOMATED 227 10^3/uL (150-450); RED BLOOD COUNT 4.55 10^6/uL (4.00-5.40); WHITE BLOOD COUNT 11.1 10^3/uL (4.0-10.0)
[2020-04-06 18:27] LABS: TOTAL PROTEIN,RANDOM URINE < 5.0 MG/DL (0.0-12.0)
[2020-04-06 18:28] LABS: ALT/SGPT 16 U/L (12-78); BILIRUBIN,TOTAL 0.3 MG/DL (0.2-1.0); CREATININE FOR GFR 0.79 MG/DL (0.55-1.30); GLOMERULAR FILTRATION RATE > 60.0 (>60); LDH LACTATE DEHYDROGENASE 168 U/L (84-246); URIC ACID 4.8 MG/DL (2.6-6.0)
== END ==
LOC: M PLALAB 15:38
PROVIDERS: ATTEND Advanced Practice Midwife
DX: O13.9 Gestational [pregnancy-induced] hypertension without significant proteinuria, unspecified trimester (principal); Z3A.00 Weeks of gestation of pregnancy not specified

== ENCOUNTER 2020-04-07 14:50 | Outpatient (CLI) | payer OTHER ==
[~2020-04-07] VITALS: Ht 165.1 cm; Wt 103.0 kg
[2020-04-07] VITALS (11 sets, daily range): BP systolic 127–163; BP diastolic 71–90
[2020-04-07] MEDS ORDERED: PROMETHAZINE INJ 25 MG/ML VIAL (J2550) IV ONE (15:30)
[2020-04-07] MEDS ORDERED: FIORICET TAB PO ONE (15:30)
[2020-04-07] MEDS ORDERED: LR 1,000 ML IV ONE (15:30)
--- NOTE | 2020-04-07 17:53 | IPNPDOC ---
Text Note Date of Service The patient was seen on 04/07/20. NOTE L&D Triage Note: S: 24-year-old 5 para 4 who presented at 27 weeks with complaints of headache, nausea and vomiting and visual changes. A history significant for preeclampsia/gestational hypertension with her previous 4 pregnancies. She denies any abdominal pain, vaginal bleeding, contractions or leakage fluid. She's been recently diagnosed with gestational hypertension. She had labs completed yesterday which was within normal limits. O: mild elevated BP, AD tracing reassuring, appropriate for dates Gen: well appearing, NAD abd: gravid, nttp Neuro: grossly intact -Patient was given a liter of lactated Ringer's solution along with 12.5 mg of Phenergan. This resolved her symptoms she was able to tolerate by mouth. A/P 24-year-old 5 para 4 at 26 weeks with gestational hypertension stable Nausea vomitingresolved Reassuring status Home with labor precautions Follow-up next week OB appointment Svetlana Emmanuel MD VS,Pro I+O VSPro I+O Vital Signs Date Time Temp Pulse Resp B/P (MAP) Pulse Ox O2 Delivery O2 Flow Rate FiO2 04/07/20 17:37 103 18 138/83 (101) 04/07/20 15:07 98.0 SVETLANA EMMANUEL MD. Apr 07, 2020 17:53
== END 2020-04-07 17:59 | disposition home or self-care (01) ==
LOC: M LDO 14:50
PROVIDERS: ATTEND Obstetrics & Gynecology
DX: O13.2 Gestational [pregnancy-induced] hypertension without significant proteinuria, second trimester (principal); Z87.59 Personal history of other complications of pregnancy, childbirth and the puerperium; R51.9 Headache, unspecified; R11.2 Nausea with vomiting, unspecified; Z3A.27 27 weeks gestation of pregnancy

== ENCOUNTER → 2020-04-15 | Outpatient (CLI) | payer OTHER ==
--- NOTE | 2020-04-15 14:39 | REP ---
INDICATION: F/U ANATOMY. Low transverse scar from previous is area in section. COMPARISON: Comparison study 02/23/2020.. TECHNIQUE: Transabdominal obstetric sonography. FINDINGS: Scanning through the gravid uterus demonstrates a viable single intrauterine gestation in cephalic lie. motion is observed and heart rate is recorded at 152 beats per minute. A posterior placenta is seen, grade 1, without evidence of placenta previa. Closed cervical length is measured at 3.2 cm transabdominally. No extrauterine abnormality is observed. Amniotic fluid is subjectively normal. 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 The following additional anatomic structures are identified today and felt to be unremarkable: cranium, face and profile, left and right ventricular outflow tract views, diaphragm, left-sided stomach, abdominal wall cord insertion, urinary bladder, three-vessel cord.. Biometry chart: BPD 6.6 cm, 26 weeks 3 days Head circumference 24.1 cm, 26 weeks 2 days Abdominal circumference 21.7 cm, 26 weeks 1 day Femur length 5.0 cm, 26 weeks 6 days Humeral length 4.6 cm, 27 weeks 1 day Cephalic index normal 0.76 HC AC ratio normal 1.11 Estimated weight 933 g, 2 lb 0 oz, 23rd percentile for 26 weeks 6 days IMPRESSION: Viable single intrauterine gestation at 26 weeks 4 days by today's composite sonographic criteria. PRAKASH by today's sonography July 18, 2020. No complication identified. Expected gestational age estimate based on prior sonography is 26 weeks 4 days as well, PRAKASH July 03 [id number]. There is an echogenic focus in the left ventricle likely chordee tendineae. <Electronically signed by Vincent Rodriguez > 04/15/20 [id number]
== END ==
LOC: M WHC 09:37
PROVIDERS: ATTEND Advanced Practice Midwife
DX: Z36.2 Encounter for other antenatal screening follow-up (principal); O34.211 Maternal care for low transverse scar from previous cesarean delivery; Z3A.26 26 weeks gestation of pregnancy

== ENCOUNTER 2020-04-25 08:16 | Outpatient (CLI) | payer OTHER ==
[2020-04-25] VITALS (33 sets, daily range): BP systolic 82–174; BP diastolic 45–115
[~2020-04-25] VITALS: Ht 165.1 cm; Wt 103.9 kg
[2020-04-25] MEDS ORDERED: NIFEdipine 10 MG CAP PO STA (08:44)
[2020-04-25] MEDS ORDERED: LABETALOL 200 MG TAB PO SCH (09:00)
[2020-04-25] MEDS ORDERED: BETAMETHASONE SOLUSPAN 6MG/ML 5ML VIAL (J0702 PER 3MG) IM SCH (09:00)
[2020-04-25] MEDS ORDERED: ASPI81CH33 PO (09:07)
--- NOTE | 2020-04-25 09:28 | IPNPDOC ---
Text Note Date of Service The patient was seen on 04/25/20. NOTE Subjective: Barby is a 24-year-old female who is a at 27.6 weeks gestation based off of her LMP and consistent with her 2nd trimester ultrasound. She initiated care at 19 weeks gestation as she had a Nexplanon placed at about the time she became and didn't know she was until second trimester. She was recently diagnosed with GHTN. She is taking a baby ASA 81 mg daily due to a history of preeclampsia with each . Her has also been complicated by 4 sections with her last now done in July. She presents to L&D this morning with complaints of having some nausea this morning which she reports has been occurring when she has an elevated blood pressure during this . She has a BP cuff and checks it PRN. Her BP she took on Saturday was 126/110 and 138/97 and this morning was 154/119 and 146/107. She currently denies headache, chest pain, or epigastric pain or visual changes. She reports that if she gets a headache it has lasted no longer than 15 minutes. She reports active movement. Denies contractions, leaking of fluid or vaginal bleeding. Past pregnancies: 09/2012: 36 weeks gestation c/s of living female weighting 6 lbs 1 oz complicated by preeclampsia 02/2014: 37 weeks c/s of female weighting 6 lbs 2 oz complicated by preeclampsia 05/2018: 37 weeks c/s of female weighting 6 lbs 2 oz complicated by preeclampsia 07/2019: 37 weeks c/s of female weighting 6 lbs 6 oz complicated by preeclampsia. Medical history: depression-was taking Zoloft and stopped with Surgical history: tonsillectomy and section x4 Family history: sleep apnea Social history: . Former smoker. No drug use or alcohol use. Objective: VS: see below. Labs: see below. FHR: 140, moderate variability, posit lyndsay accelerations, no decelerations. Contractions none. Appropriate for gestational age. Alert and oriented. Respiratory: regular rate with no use of accessory muscles. Abdomen: gravid and non-tender to palpation. Extremities: no edema noted. 2+ patella reflexes. Assessment: SIUP at 27.6 weeks gestation, GHTN/preeclampsia vs CHTN Plan: Plan consulted initially with Dr. Leach. Lowell ordered PO Stat now. Saline lock to be placed. Preeclamptic labs ordered. Patients blood pressures have decreased with Nifedipine and started to rise again. Reviewed normal labs and elevated BPs with Dr. Lozano. He recommends doing PO labetalol 200 mg BID, observation, and repeat labs later today. Also recommends a 24 hour urine to be done. Given the history and her being late to care for at 19-20 weeks gestation he is considering this to be more CHTN related. VS,Fishbone, I+O VS, Fishbone, I+O Vital Signs Date Time Temp Pulse Resp B/P (MAP) Pulse Ox O2 Delivery O2 Flow Rate FiO2 04/25/20 08:58 174/102 Item Value Date Time White Blood Count 10.1 10^3/uL H 04/25/20926 Red Blood Count 4.69 10^6/uL 04/25/20926 Hemoglobin 11.6 g/dl L 04/25/20926 Hematocrit 37.7 % 04/25/20926 Mean Corpuscular Volume 80.4 fl 04/25/20926 Mean Corpuscular Hemoglobin 24.7 pg L 04/25/20926 Red Cell Distribution Width 14.4 % 04/25/20926 Mean Corpuscular Hemoglobin Concent 30.8 g/dl L 04/25/20926 Platelet Count 209 10^3/uL 04/25/20926 Item Value Date Time Creatinine 0.68 MG/DL 04/25/20926 Glomerular Filtration Rate > 60.0 04/25/20926 Uric Acid 4.6 MG/DL 04/25/20926 Total Bilirubin 0.3 MG/DL 04/25/20926 Aspartate Amino Transf (AST/SGOT) 7 U/L 04/25/20926 Alanine Aminotransferase (ALT/SGPT) 14 U/L 04/25/20926 Lactate Dehydrogenase 145 U/L 04/25/20926 Item Value Date Time Urine Random Creatinine 143.0 MG/DL 04/25/20926 Urine Random Total Protein 16.1 MG/DL H 04/25/20926 Vital Signs Label Value Date Time Blood Pressure Assessment 174/102 04/25/20 0858 Blood Pressure Assessment 170/97 (121) 04/25/20 0911 Source Automatic Cuff (NIBP) Blood Pressure Assessment 156/82 (106) 04/25/20 0929 Source Automatic Cuff (NIBP) Blood Pressure Assessment 148/85 (106) 04/25/20 0943 Source Automatic Cuff (NIBP) Blood Pressure Assessment 174/115 (134) 04/25/20 0959 Source Automatic Cuff (NIBP) Blood Pressure Assessment 160/88 (112) 04/25/20 1010 Source Automatic Cuff (NIBP) Blood Pressure Assessment 158/88 (111) 04/25/20 1012 Source Automatic Cuff (NIBP) Blood Pressure Assessment 134/75 (94) 04/25/20 1028 Source Automatic Cuff (NIBP) JOHN HOLBROOK CNM Apr 25, 2020 09:28
[2020-04-25] MEDS ORDERED: LABETALOL 100MG/20ML VIAL IV STA (09:29)
[2020-04-25 09:45] LABS: HEMATOCRIT 37.7 % (36.0-47.0); HEMOGLOBIN 11.6 g/dl (12.0-15.5); MEAN CORPUSCULAR HEMOGLOBIN 24.7 pg (27.0-33.0); MEAN CORPUSCULAR HGB CONC 30.8 g/dl (32.0-36.5); MEAN CORPUSCULAR VOLUME 80.4 fl (80.0-96.0); PLATELET COUNT, AUTOMATED 209 10^3/uL (150-450); RED BLOOD COUNT 4.69 10^6/uL (4.00-5.40); WHITE BLOOD COUNT 10.1 10^3/uL (4.0-10.0)
[2020-04-25 10:15] LABS: TOTAL PROTEIN,RANDOM URINE 16.1 MG/DL (0.0-12.0)
[2020-04-25 10:16] LABS: ALT/SGPT 14 U/L (12-78); BILIRUBIN,TOTAL 0.3 MG/DL (0.2-1.0); CREATININE FOR GFR 0.68 MG/DL (0.55-1.30); GLOMERULAR FILTRATION RATE > 60.0 (>60); LDH LACTATE DEHYDROGENASE 145 U/L (84-246); URIC ACID 4.6 MG/DL (2.6-6.0)
[2020-04-25] MEDS ORDERED: ACETAMINOPHEN 500 MG TAB PO PRN (10:30)
[2020-04-25] MEDS ORDERED: LACTATED RINGER'S 1000 ML IV ONE (13:00)
[2020-04-25] MEDS ORDERED: LABETALOL 100MG TAB PO ONE (22:00)
[2020-04-26] VITALS (21 sets, daily range): BP systolic 118–149; BP diastolic 60–90
[2020-04-26] MEDS ORDERED: LABETALOL 200 MG TAB PO ONE (11:45)
[2020-04-26 12:08] LABS: CREATININE, URINE 69.4 MG/DL; URINE TOTAL PROTEIN 6.2 MG/DL (0-12)
[2020-04-26] MEDS ORDERED: LABE200T32 PO (17:10)
== END 2020-04-26 16:02 | disposition home or self-care (01) ==
LOC: M LDO 08:16
PROVIDERS: ATTEND Advanced Practice Midwife
DX: O16.2 Unspecified maternal hypertension, second trimester (principal); Z3A.27 27 weeks gestation of pregnancy

== ENCOUNTER → 2020-05-06 | Outpatient (CLI) | payer OTHER ==
[~2020-05-06] MED LIST changes: +ASPI81CH33 PO; +LABE200T32 PO
== END ==
LOC: M WHC 15:51
PROVIDERS: ATTEND Obstetrics & Gynecology
DX: O13.3 Gestational [pregnancy-induced] hypertension without significant proteinuria, third trimester (principal); Z3A.00 Weeks of gestation of pregnancy not specified

== ENCOUNTER → 2020-05-12 | Outpatient (CLI) | payer OTHER ==
--- NOTE | 2020-05-12 12:06 | REP ---
INDICATION: GESTATIONAL HYPERTENSION,GROWTH COMPARISON: 04/15/2020 TECHNIQUE: Transabdominal obstetrical ultrasound with color Doppler evaluation. FINDINGS: Examination demonstrates a single live intrauterine in breech presentation. motion is identified by technologist. Placenta is noted posterior and grade 1 without evidence for placenta previa or abruption. Amniotic fluid volume is normal. Cervix measures 4.3 cm in length and appears closed.. Gestational age by 1st ultrasound 30 weeks 3 days with PRAKASH 07/18/2020. Gestational age by current measurements 30 weeks 4 days with PRAKASH 07/17/2020. FHR equals 138 beats per minute. BPD: 7.4 cm at 29 weeks 4 days HC: 28.5 cm at 31 weeks 2 days AC: 26.0 cm at 30 weeks 1 day FL: 5.8 cm at 30 weeks 2 days HL: 5.5 cm at 31 weeks 6 days HC/AC: 1.10 Estimated weight 1539 grams (24thpercentile). NADIA: 15.3 cm IMPRESSION: Single live advanced gestation in breech presentation demonstrating appropriate estimated weight and growth. <Electronically signed by Gerson Pisano > 05/12/20 1203
== END ==
LOC: M WHC 09:32
PROVIDERS: ATTEND Obstetrics & Gynecology
DX: O13.3 Gestational [pregnancy-induced] hypertension without significant proteinuria, third trimester (principal); Z3A.30 30 weeks gestation of pregnancy

== ENCOUNTER → 2020-05-13 | Outpatient (REF) | payer OTHER ==
[2020-05-13 15:54] LABS: HEMATOCRIT 34.6 % (36.0-47.0); HEMOGLOBIN 10.6 g/dl (12.0-15.5); MEAN CORPUSCULAR HEMOGLOBIN 25.1 pg (27.0-33.0); MEAN CORPUSCULAR HGB CONC 30.6 g/dl (32.0-36.5); PLATELET COUNT, AUTOMATED 234 10^3/uL (150-450); RED BLOOD COUNT 4.22 10^6/uL (4.00-5.40); WHITE BLOOD COUNT 8.6 10^3/uL (4.0-10.0)
== END ==
LOC: M PLALAB 09:42
PROVIDERS: ATTEND Obstetrics & Gynecology
DX: Z34.90 Encounter for supervision of normal pregnancy, unspecified, unspecified trimester (principal); Z3A.24 24 weeks gestation of pregnancy

== ENCOUNTER → 2020-05-31 | Outpatient (CLI) | payer OTHER ==
--- NOTE | 2020-06-01 08:02 | REP ---
INDICATION: HYPERTENSION,GROWTH COMPARISON: 05/12/2020 TECHNIQUE: Transabdominal obstetrical ultrasound with color Doppler evaluation. FINDINGS: Examination demonstrates a single live intrauterine in cephalic presentation. motion is identified by technologist. Placenta is noted posterior and grade 1 without evidence for placenta previa or abruption. Amniotic fluid volume is normal. Cervix measures 4.3 cm in length and appears closed. No evidence for nuchal cord. Gestational age by LMP 33 weeks 3 days with PRAKASH 07/16/2020. Gestational age by 1st U/S and current measurements 33 weeks 1 day with PRAKASH 07/18/2020. FHR equals 142 beats per minute. BPD: 7.8 cm at 31 weeks 2 days HC: 29.8 cm at 32 weeks 6 days AC: 28.7 cm at 32 weeks 5 days FL: 6.7 cm at 34 weeks 3 days HL: 5.9 cm at 34 weeks 3 days HC/AC: 1.04 Estimated weight 2118 grams (32ndpercentile). NADIA: 13.8 cm (8.2-24.6) IMPRESSION: Single live intrauterine in cephalic presentation demonstrating appropriate estimated weight and growth. <Electronically signed by Gerson Pisano > 06/01/20 [id number]
== END ==
LOC: M WHC 15:03
PROVIDERS: ATTEND Advanced Practice Midwife
DX: O13.3 Gestational [pregnancy-induced] hypertension without significant proteinuria, third trimester (principal)

== ENCOUNTER → 2020-06-16 | Outpatient (REF) | payer OTHER | LOC: M SFHCWAGY 14:49 | PROVIDERS: ATTEND Advanced Practice Midwife | DX: O34.211 Maternal care for low transverse scar from previous cesarean delivery (principal) ==

== ENCOUNTER → 2020-06-22 | Outpatient (CLI) | payer OTHER ==
--- NOTE | 2020-06-22 11:49 | REP ---
INDICATION: GESTATIONAL HYPERTENSION,GROWTH COMPARISON: 05/31/2020 TECHNIQUE: Transabdominal obstetrical ultrasound with color Doppler evaluation. FINDINGS: Examination demonstrates a single live intrauterine in cephalic presentation. motion is identified by technologist. Placenta is noted posterior grade 2 and grade without evidence for placenta previa or abruption. Amniotic fluid volume is normal. Cervix appears closed.. Gestational age by LMP 36 weeks 4 days with PRAKASH 07/16/2020. Gestational age by 1st U/S 36 weeks 2 days with PRAKASH 07/18/2020. Gestational age by current measurements 35 weeks 4 days with PRAKASH 07/22/2020. FHR equals 149 beats per minute. BPD: 8.5 cm at 34 weeks 1 day HC: 32.3 cm at 36 weeks 4 days AC: 32.2 cm at 36 weeks 0 days FL: 6.9 cm at 35 weeks 4 days HL: 6.1 cm at 35 weeks 4 days HC/AC: 1.01 Estimated weight 2764 grams (33rdpercentile). NADIA: 15.3 cm IMPRESSION: Single live intrauterine in cephalic presentation demonstrating appropriate estimated weight and growth. <Electronically signed by Gerson Pisano > 06/22/20 [id number]
== END ==
LOC: M WHC 10:14
PROVIDERS: ATTEND Advanced Practice Midwife
DX: O13.3 Gestational [pregnancy-induced] hypertension without significant proteinuria, third trimester (principal); Z3A.35 35 weeks gestation of pregnancy

== ENCOUNTER 2020-10-07 11:10 | Emergency (ER) | payer OTHER ==
[~2020-10-07] VITALS: Ht 165.1 cm; Wt 98.6 kg
[2020-10-07 13:22] LABS: ALBUMIN 3.9 GM/DL (3.2-5.2); BILIRUBIN,DIRECT 0.1 MG/DL (0.0-0.2); BILIRUBIN,TOTAL 0.5 MG/DL (0.2-1.0); TOTAL PROTEIN 7.4 GM/DL (6.4-8.2)
[2020-10-07 14:31] LABS: BASO % 0.1 % (0.0-1.0); EOS # 0.1 10^3/uL (0.0-0.5); EOS % 0.6 % (0.0-3.0); HEMATOCRIT 43.6 % (36.0-47.0); HEMOGLOBIN 13.5 g/dl (12.0-15.5); LYMPH # 1.2 10^3/uL (1.5-5.0); LYMPH % 15.7 % (24.0-44.0); MEAN CORPUSCULAR HEMOGLOBIN 24.1 pg (27.0-33.0); MEAN CORPUSCULAR VOLUME 77.7 fl (80.0-96.0); MONO # 0.4 10^3/uL (0.0-0.8); MONO % 5.4 % (2.0-8.0); NEUTROPHILS # 6.1 10^3/uL (1.5-8.5); NEUTROPHILS % 77.7 % (36.0-66.0); PLATELET COUNT, AUTOMATED 202 10^3/uL (150-450); RED BLOOD COUNT 5.61 10^6/uL (4.00-5.40); WHITE BLOOD COUNT 7.9 10^3/uL (4.0-10.0)
[2020-10-07 15:29] VITALS: BP 140/97
== END 2020-10-07 15:31 | disposition home or self-care (01) ==
LOC: M ED 11:10
DX: I10 Essential (primary) hypertension (principal); I45.19 Other right bundle-branch block; Z79.899 Other long term (current) drug therapy; Z88.8 Allergy status to other drugs, medicaments and biological substances

== ENCOUNTER → 2020-10-27 | Outpatient (REF) | payer OTHER | LOC: M LAB REF 18:03 | PROVIDERS: ATTEND Nurse Practitioner Family | DX: J02.9 Acute pharyngitis, unspecified (principal) ==

== ENCOUNTER → 2020-12-01 | Outpatient (REF) | LOC: M LABSMTC 10:06 | PROVIDERS: ATTEND Pediatrics | DX: Z11.52 Encounter for screening for COVID-19 (principal) ==

== ENCOUNTER → 2020-12-07 | Outpatient (REF) | LOC: M EMP 09:35 | PROVIDERS: ATTEND Family Medicine | DX: Z11.52 Encounter for screening for COVID-19 (principal) ==

== ENCOUNTER → 2020-12-12 | Outpatient (CLI) | payer OTHER ==
--- NOTE | 2020-12-13 16:41 | SLEEPCENT ---
DATE: 12/12/2020 ORDERED BY: Jose Carlos Lockhart Diagnostic home sleep testing was performed due to concern for the obstructive sleep apnea syndrome in this patient with a history of same. For testing, a NOX T3 respiratory monitoring device was used. Continuous record was made of pulse, oxygen saturation, air flow, chest and abdominal strain, and body position. There was 9 hours and 59 minutes of data reviewed. There was 7 hours and 23 minutes marked as time in bed. During the interval marked time in bed, there were 580 respiratory events identified of 10 seconds in duration or greater for a respiratory disturbance index of 79.5. The events were primarily obstructive; however, 201 mixed and central apneas were seen. Baseline pulse rate was 88. Pulse rate ranged 57-131. Baseline saturation was 95%. Saturations fell to 60%. Testing was performed in both the supine and nonsupine positions. IMPRESSION: Abnormal home sleep testing with repetitive respiratory events and oxygen desaturations to 60% with a respiratory event index of 79.5 is consistent with the obstructive sleep apnea syndrome. RECOMMENDATION: The patient should be encouraged to undergo formal sleep evaluation at her earliest convenience.
== END ==
LOC: M SLEEP HO 13:09
PROVIDERS: ATTEND Physician Assistant
DX: G47.33 Obstructive sleep apnea (adult) (pediatric) (principal)

== ENCOUNTER → 2021-01-05 | Outpatient (CLI) | payer OTHER ==
[2021-01-05 09:21] LABS: BASO % 0.3 % (0.0-1.0); EOS # 0.1 10^3/uL (0.0-0.5); EOS % 1.4 % (0.0-3.0); HEMATOCRIT 41.7 % (36.0-47.0); LYMPH # 1.9 10^3/uL (1.5-5.0); LYMPH % 28.7 % (24.0-44.0); MEAN CORPUSCULAR HGB CONC 31.2 g/dl (32.0-36.5); MONO # 0.7 10^3/uL (0.0-0.8); MONO % 10.1 % (2.0-8.0); NEUTROPHILS # 3.9 10^3/uL (1.5-8.5); NEUTROPHILS % 59.3 % (36.0-66.0); PLATELET COUNT, AUTOMATED 243 10^3/uL (150-450); RED BLOOD COUNT 5.21 10^6/uL (4.00-5.40); WHITE BLOOD COUNT 6.6 10^3/uL (4.0-10.0)
[2021-01-05 09:55] LABS: ALBUMIN 3.6 GM/DL (3.2-5.2); ALT/SGPT 20 U/L (12-78); BILIRUBIN,TOTAL 0.5 MG/DL (0.2-1.0); BLOOD UREA NITROGEN 11 MG/DL (7-18); CALCIUM LEVEL 9.1 MG/DL (8.5-10.1); CARBON DIOXIDE LEVEL 29 MEQ/L (21-32); CHLORIDE LEVEL 106 MEQ/L (98-107); CREATININE FOR GFR 1.14 MG/DL (0.55-1.30); GLOMERULAR FILTRATION RATE > 60.0 (>60); GLUCOSE, FASTING 82 MG/DL (70-100); POTASSIUM SERUM 4.2 MEQ/L (3.5-5.1); SODIUM LEVEL 139 MEQ/L (136-145); TOTAL PROTEIN 7.3 GM/DL (6.4-8.2)
--- NOTE | 2021-01-05 14:12 | REP ---
INDICATION: HTN, R/O GENIA; ELEVATED LFT'S. COMPARISON: None. TECHNIQUE: Real-time sonographic evaluation of the kidneys is performed. Duplex Doppler evaluation of renal arteries performed. FINDINGS: Renal cortical echogenicity pattern is normal bilaterally and contours are smooth. There is no evidence of hydronephrosis, cyst, mass, or calculus in either kidney. The right kidney measures 10.9 x 5.9 x 3.7 cm. Left renal dimensions are 11.0 x 4.8 x 3.8 cm. The urinary bladder is unremarkable. Duplex Doppler evaluation of renal arteries performed. The peak systolic velocity of the abdominal aorta is 80 centimeter/second at the level of the renal arteries. The peak systolic velocity of the main right renal artery is 76 centimeter/second. Resistive indices right kidney range between 0.47-0.56. Acceleration times range between 0.022 and 0.048. Peak systolic velocity of the main left renal artery is 82 centimeter/second. Resistive indices left kidney 0.57-0.63. Acceleration times 0.058-0.70. IMPRESSION: Negative renal ultrasound. No compelling duplex Doppler sonographic evidence of hemodynamically significant stenosis of the renal arteries bilaterally. <Electronically signed by Isaiah Hernandez > 01/05/21 4308
== END ==
LOC: M RAD 08:03
PROVIDERS: ATTEND Family Medicine
DX: R03.0 Elevated blood-pressure reading, without diagnosis of hypertension (principal)

== ENCOUNTER → 2021-01-16 | Outpatient (REF) | LOC: M LABSMTC 10:03 | PROVIDERS: ATTEND Family Medicine | DX: Z11.52 Encounter for screening for COVID-19 (principal) ==

== ENCOUNTER → 2021-01-17 | Outpatient (REF) | LOC: M EMP 15:48 | PROVIDERS: ATTEND Family Medicine | DX: Z11.52 Encounter for screening for COVID-19 (principal) ==

== ENCOUNTER → 2021-05-31 | Outpatient (REF) ==
[~2021-05-31] MED LIST changes: +LABE200T3 PO; -LABE200T32 PO
== END ==
LOC: M LABSMTC 09:35
PROVIDERS: ATTEND Family Medicine
DX: Z11.52 Encounter for screening for COVID-19 (principal)

== ENCOUNTER → 2021-06-07 | Outpatient (CLI) | payer OTHER ==
[2021-06-07 08:21] LABS: BASO % 0.1 % (0.0-1.0); EOS # 0.1 10^3/uL (0.0-0.5); EOS % 1.3 % (0.0-3.0); HEMATOCRIT 40.5 % (36.0-47.0); LYMPH # 1.9 10^3/uL (1.5-5.0); MEAN CORPUSCULAR HEMOGLOBIN 26.2 pg (27.0-33.0); MEAN CORPUSCULAR HGB CONC 32.1 g/dl (32.0-36.5); MEAN CORPUSCULAR VOLUME 81.7 fl (80.0-96.0); MONO # 0.5 10^3/uL (0.0-0.8); MONO % 7.3 % (2.0-8.0); NEUTROPHILS # 4.4 10^3/uL (1.5-8.5); PLATELET COUNT, AUTOMATED 249 10^3/uL (150-450); RED BLOOD COUNT 4.96 10^6/uL (4.00-5.40); WHITE BLOOD COUNT 6.9 10^3/uL (4.0-10.0)
[2021-06-07 09:00] LABS: ALBUMIN 3.5 GM/DL (3.2-5.2); ALT/SGPT 23 U/L (12-78); BILIRUBIN,TOTAL 0.4 MG/DL (0.2-1.0); BLOOD UREA NITROGEN 14 MG/DL (7-18); CARBON DIOXIDE LEVEL 28 MEQ/L (21-32); CHLORIDE LEVEL 109 MEQ/L (98-107); CREATININE FOR GFR 1.02 MG/DL (0.55-1.30); FERRITIN 8 NG/ML (8-252); FREE T4 0.94 NG/DL (0.76-1.46); GLOMERULAR FILTRATION RATE > 60.0 (>60); GLUCOSE, FASTING 94 MG/DL (70-100); IRON (FE) 27 UG/DL (50-170); POTASSIUM SERUM 4.3 MEQ/L (3.5-5.1); SODIUM LEVEL 141 MEQ/L (136-145); TOTAL IRON BINDING CAPACITY 336 UG/DL (250-450); TOTAL PROTEIN 7.1 GM/DL (6.4-8.2)
[2021-06-07 11:42] LABS: TOTAL 25(OH) VITAMIN D 15.5 NG/ML (30.0-100.0)
== END ==
LOC: M LAB 07:35
PROVIDERS: ATTEND Nurse Practitioner Family
DX: I10 Essential (primary) hypertension (principal); R53.83 Other fatigue

== ENCOUNTER 2021-06-13 09:43 | Emergency (ER) | payer OTHER ==
[~2021-06-13] VITALS: Ht 165.1 cm; Wt 94.0 kg
[2021-06-13] MEDS ORDERED: LISI5TAB11 (09:52)
[2021-06-13] MEDS ORDERED: FERR1TAB8 (09:52)
[2021-06-13 12:50] VITALS: BP 128/79
[2021-06-13 13:05] LABS: APPEARANCE, URINE CLEAR (CLEAR); BACTERIA, URINE AUTO NEGATIVE (NEGATIVE); BILIRUBIN, URINE AUTO NEGATIVE (NEGATIVE); BLOOD, URINE BLOOD NEGATIVE (NEGATIVE); COLOR, URINE STRAW (YELLOW); GLUCOSE, URINE (UA) AUTO NEGATIVE (NEGATIVE); KETONE, URINE AUTO NEGATIVE (NEGATIVE); LEUKOCYTE ESTERASE, URINE AUTO NEGATIVE (NEGATIVE); NITRITE, URINE AUTO NEGATIVE (NEGATIVE); PROTEIN, URINE AUTO NEGATIVE (NEGATIVE); RBC, URINE AUTO 0 /HPF (0-3); SPECIFIC GRAVITY URINE AUTO 1.008 (1.002-1.035); SQUAMOUS EPITHELIAL CELL UR AU 1 /HPF (0-6); UROBILINOGEN, URINE AUTO 0.2 mg/dL (0.0-2.0); WBC, URINE AUTO 0 /HPF (0-3)
== END 2021-06-13 12:52 | disposition home or self-care (01) ==
LOC: M ED 09:43
DX: I16.0 Hypertensive urgency (principal); E61.1 Iron deficiency; Z88.8 Allergy status to other drugs, medicaments and biological substances

== ENCOUNTER → 2021-07-11 | Outpatient (REF) ==
[~2021-07-11] MED LIST changes: +FERR1TAB8; +LISI5TAB11
[2021-07-11 09:51] LABS: RSV AMPLIFICATION NEGATIVE (NEGATIVE)
== END ==
LOC: M EMP 08:44
PROVIDERS: ATTEND Family Medicine
DX: Z11.52 Encounter for screening for COVID-19 (principal)

== ENCOUNTER → 2021-12-04 | Outpatient (REF) ==
[~2021-12-04] MED LIST changes: -LABE200T3 PO; +LABE200T5 PO
[2021-12-04 13:18] LABS: RSV AMPLIFICATION NEGATIVE (NEGATIVE)
== END ==
LOC: M LABSMTC 11:06
PROVIDERS: ATTEND Family Medicine
DX: Z11.52 Encounter for screening for COVID-19 (principal)

== ENCOUNTER → 2021-12-11 | Outpatient (REF) | LOC: M LABSMTC 11:01 | PROVIDERS: ATTEND Family Medicine | DX: Z20.822 Contact with and (suspected) exposure to COVID-19 (principal) ==

== ENCOUNTER → 2022-02-13 | Outpatient (REF) ==
[2022-02-13 14:47] LABS: RSV AMPLIFICATION NEGATIVE (NEGATIVE)
== END ==
LOC: M LABSMTC 10:14
PROVIDERS: ATTEND Family Medicine
DX: Z20.822 Contact with and (suspected) exposure to COVID-19 (principal)

== ENCOUNTER → 2022-03-20 | Outpatient (CLI) | payer OTHER | LOC: M RAD 15:16 | PROVIDERS: ATTEND Registered Nurse | DX: M79.672 Pain in left foot (principal) ==

== ENCOUNTER → 2022-04-12 | Outpatient (REF) | LOC: M LABSMTC 10:48 | PROVIDERS: ATTEND Family Medicine | DX: Z11.52 Encounter for screening for COVID-19 (principal) ==

== ENCOUNTER → 2023-06-11 | Outpatient (CLI) | payer OTHER ==
[~2023-06-11] MED LIST changes: +ISOVUE-370 76% 100ML VIAL As Ordered ONE
== END ==
LOC: M RAD 08:21
PROVIDERS: ATTEND Registered Nurse
DX: R04.2 Hemoptysis (principal); R91.8 Other nonspecific abnormal finding of lung field; R93.2 Abnormal findings on diagnostic imaging of liver and biliary tract
CPT/HCPCS: 71260; Q9967

== ENCOUNTER → 2023-07-01 | Outpatient (CLI) | payer OTHER ==
[~2023-07-01] MED LIST changes: -ISOVUE-370 76% 100ML VIAL As Ordered ONE
== END ==
LOC: M RAD 06:47
PROVIDERS: ATTEND Registered Nurse
DX: R93.2 Abnormal findings on diagnostic imaging of liver and biliary tract (principal)

== ENCOUNTER → 2023-07-08 | Outpatient (CLI) | payer OTHER | LOC: M SLEEP 20:00 | PROVIDERS: ATTEND Physician Assistant | DX: G47.33 Obstructive sleep apnea (adult) (pediatric) (principal) ==

== ENCOUNTER 2024-05-05 09:56 | Emergency (ER) | payer OTHER ==
[~2024-05-05] VITALS: Ht 165.1 cm; Wt 91.7 kg
[2024-05-05 10:35] LABS: BASO % 0.3 % (0.0-1.0); EOS # 0.1 10^3/uL (0.0-0.5); HEMATOCRIT 42.3 % (36.0-47.0); HEMOGLOBIN 13.9 g/dl (12.0-15.5); LYMPH % 26.3 % (24.0-44.0); MEAN CORPUSCULAR HEMOGLOBIN 27.1 pg (27.0-33.0); MEAN CORPUSCULAR HGB CONC 32.9 g/dl (32.0-36.5); MEAN CORPUSCULAR VOLUME 82.5 fl (80.0-96.0); MONO # 0.7 10^3/uL (0.0-0.8); MONO % 9.2 % (2.0-8.0); NEUTROPHILS # 4.8 10^3/uL (1.5-8.5); NEUTROPHILS % 63.1 % (36.0-66.0); PLATELET COUNT, AUTOMATED 244 10^3/uL (150-450); RED BLOOD COUNT 5.13 10^6/uL (4.00-5.40); WHITE BLOOD COUNT 7.7 10^3/uL (4.0-10.0)
[2024-05-05 11:07] LABS: CK-MB VALUE MASS 1.3 NG/ML (<3.6)
[2024-05-05 11:08] LABS: BLOOD UREA NITROGEN 13 MG/DL (9-23); CALCIUM LEVEL 9.5 MG/DL (8.5-10.1); CARBON DIOXIDE LEVEL 26 MMOL/L (20-31); CHLORIDE LEVEL 106 MMOL/L (98-107); CREATININE FOR GFR 1.02 MG/DL (0.55-1.30); GLOMERULAR FILTRATION RATE > 60.0 (>60); GLUCOSE, FASTING 101 MG/DL (60-100); POTASSIUM SERUM 4.5 MMOL/L (3.5-5.1); SODIUM LEVEL 141 MMOL/L (136-145)
[2024-05-05 11:16] LABS: CPK CREATINE PHOSPHOKINASE 99 U/L (34-145); MB/CK RELATIVE INDEX 1.31 (< OR =4)
[2024-05-05] MEDS: KETOROLAC 30 MG/ML 1ML VIAL IV ONE (11:16)
[2024-05-05] MEDS ORDERED: ISOVUE-370 76% 100ML VIAL As Ordered ONE (11:46)
[2024-05-05 11:57] LABS: CK-MB VALUE MASS 1.3 NG/ML (<3.6)
[2024-05-05 12:03] LABS: CPK CREATINE PHOSPHOKINASE 92 U/L (34-145); MB/CK RELATIVE INDEX 1.41 (< OR =4)
[2024-05-05] MEDS ORDERED: AMOX875T2 PO (13:21)
[2024-05-05] MEDS ORDERED: KETO10TAB PO (13:21)
[2024-05-05 13:45] VITALS: BP 162/105; TEMP 97; O2SAT 99
== END 2024-05-05 13:53 | disposition home or self-care (01) ==
LOC: M ED 09:56
DX: R07.9 Chest pain, unspecified (principal); J84.9 Interstitial pulmonary disease, unspecified; I10 Essential (primary) hypertension; E78.5 Hyperlipidemia, unspecified; F17.200 Nicotine dependence, unspecified, uncomplicated; Z79.2 Long term (current) use of antibiotics; Z79.899 Other long term (current) drug therapy
CPT/HCPCS: 71045; 71275; 80048; 82550; 82553; 84484; 85025; 93005; 93041; 94760; 96374; 99285; J1885; Q9967

== ENCOUNTER 2024-12-30 10:21 | Emergency (ER) | payer OTHER ==
[~2024-12-30] VITALS: Ht 165.1 cm; Wt 102.5 kg
[~2024-12-30 10:21] MED LIST changes: +AMOX875T2 PO; +KETO10TAB PO
[2024-12-30] MEDS ORDERED: EFFE37.52 PO (10:37)
[2024-12-30 12:47] VITALS: BP 140/105; TEMP 96.9; O2SAT 99
== END 2024-12-30 12:49 | disposition home or self-care (01) ==
LOC: M ED 10:21
DX: M79.604 Pain in right leg (principal); Z79.899 Other long term (current) drug therapy

== ENCOUNTER → 2025-02-05 | Outpatient (CLI) | payer OTHER ==
[~2025-02-05] MED LIST changes: +EFFE37.52 PO; -LABE200T5 PO; +LABE200T86 PO
== END ==
LOC: M PLAIMG 11:38
PROVIDERS: ATTEND Orthopaedic Surgery
DX: M94.271 Chondromalacia, right ankle and joints of right foot (principal); M71.571 Other bursitis, not elsewhere classified, right ankle and foot; M65.871 Other synovitis and tenosynovitis, right ankle and foot; M25.571 Pain in right ankle and joints of right foot

== ENCOUNTER → 2025-02-22 | Outpatient (CLI) | payer OTHER ==
[2025-02-22 11:55] LABS: BASO # 0.0 10^3/uL (0.0-0.2); BASO % 0.3 % (0.0-1.0); EOS # 0.1 10^3/uL (0.0-0.5); EOS % 1.8 % (0.0-3.0); LYMPH # 2.1 10^3/uL (1.5-5.0); LYMPH % 27.0 % (24.0-44.0); MONO # 0.8 10^3/uL (0.0-0.8); MONO % 10.0 % (2.0-8.0); NEUTROPHILS # 4.7 10^3/uL (1.5-8.5); NEUTROPHILS % 60.6 % (36.0-66.0); PLATELET COUNT, AUTOMATED 285 10^3/uL (150-450)
[2025-02-22 12:14] LABS: ALT/SGPT 15 U/L (7.0-40); AST/SGOT 17 U/L (<34); CALCIUM LEVEL 9.6 MG/DL (8.5-10.1); CARBON DIOXIDE LEVEL 29 MMOL/L (20-31); CHLORIDE LEVEL 104 MMOL/L (98-107); CREATININE FOR GFR 1.08 MG/DL (0.55-1.30); GLOMERULAR FILTRATION RATE 70.4 (>60); POTASSIUM SERUM 4.3 MMOL/L (3.5-5.1); SODIUM LEVEL 141 MMOL/L (136-145)
[2025-02-22 12:17] LABS: FREE T4 0.96 NG/DL (0.89-1.76); THYROID PEROXIDASE ANTIBODY < 28.0 U/ML (<60.0)
== END ==
LOC: M LAB 11:09
PROVIDERS: ATTEND Registered Nurse
DX: R59.0 Localized enlarged lymph nodes (principal)